=== PATIENT | female | born 1950 | race Caucasian/White ===

== ENCOUNTER 2019-08-19 09:17 | Emergency (ER) | payer MEDICARE ==
[~2019-08-19] VITALS: Ht 157.5 cm; Wt 63.5 kg
[2019-08-19 09:47] LABS: BILIRUBIN,URINE SMALL (NEG); CLARITY,URINE CLOUDY; COLOR,URINE AMBER; NITRITE,URINE NEGATIVE (NEG); PROTEIN,URINE 100 mg/dL (NEG-TRACE)
[2019-08-19 09:55] LABS: BACTERIA,URINE MANY /HPF (0-FEW); RBC,URINE >40 /HPF (0-2); WBC,URINE TNTC /HPF (0-4)
--- NOTE | 2019-08-19 10:09 | PHYS DOC ---
Past Medical History Past Medical History: Diabetes-Type II, Hypertension Past Surgical History: Appendectomy, Cholecystectomy, Other Additional Past Surgical Histo: HEAD, EYE, R. ARM AND WRIST Alcohol Use: None Drug Use: None Adult General Chief Complaint Chief Complaint: ABDOMINAL PAIN HPI HPI 69-year-old female presents to the emergency Department complaints of abdominal pain left flank pain. She states is been ongoing approximate one month. Worsening pain today. Describes the pain as sharp she denies any nausea, vomiting, fever, diarrhea. She states worsening pain with eating. Review of Systems Review of Systems Constitutional: Denies fever or chills [] Eyes: Denies change in visual acuity, redness, or eye pain [] HENT: Denies nasal congestion or sore throat [] Respiratory: Denies cough or shortness of breath [] Cardiovascular: No additional information not addressed in HPI [] GI: + abdominal pain, left flank, no nausea, vomiting, bloody stools or diarrhea [] : Denies dysuria or hematuria [] Musculoskeletal: Denies back pain or joint pain [] Integument: Denies rash or skin lesions [] Neurologic: Denies headache, focal weakness or sensory changes [] All other systems were reviewed and found to be within normal limits, except as documented in this note. Allergies Allergies Allergies Coded Allergies Type Severity Reaction Last Updated Verified No Known Drug Allergies 02/20/15 No Physical Exam Physical Exam Constitutional: Well developed, well nourished, no acute distress, non-toxic appearance. [] HENT: Normocephalic, atraumatic, bilateral external ears normal, oropharynx moist, no oral exudates, nose normal. [] Eyes: PERRLA, EOMI, conjunctiva normal, no discharge. [] Cardiovascular:Heart rate regular rhythm, no murmur [] Lungs & Thorax: Bilateral breath sounds clear to auscultation [] Abdomen: Bowel sounds normal, soft, no tenderness, no masses, no pulsatile masses. [] Skin: Warm, dry, no erythema, no rash. [] Back: No tenderness, no CVA tenderness. [] Extremities: No tenderness, no edema. [] Neurologic: Alert and oriented X 3, no focal deficits noted. [] Psychologic: Affect normal, judgement normal, mood normal. [] Current Patient Data Vital Signs Vital Signs Date Time Temp Pulse Resp B/P (MAP) Pulse Ox O2 Delivery O2 Flow Rate FiO2 08/19/19 09:44 110 16 154/72 (99) 98 Room Air Lab Values Laboratory Tests Test 08/19/19 09:23 08/19/19 09:55 Urine Color [place] Urine Clarity Cloudy Urine pH 7.0 Urine Specific Lyons 1.015 Urine Protein 100 mg/dL (NEG-TRACE) Urine Glucose (UA) 100 mg/dL (NEG) Urine Ketones (Stick) 15 mg/dL (NEG) Urine Blood Large (NEG) Urine Nitrite Negative (NEG) Urine Bilirubin Small (NEG) Urine Urobilinogen Dipstick 4.0 mg/dL (0.2 mg/dL) Urine Leukocyte Esterase Large (NEG) Urine RBC >40 /HPF (0-2) Urine WBC Tntc /HPF (0-4) Urine Bacteria Many /HPF (0-FEW) White Blood Count 12.1 x10^3/uL (4.0-11.0) H Red Blood Count 4.46 x10^6/uL (3.50-5.40) Hemoglobin 13.1 g/dL (12.0-15.5) Hematocrit 37.4 % (36.0-47.0) Mean Corpuscular Volume 84 fL (79-100) Mean Corpuscular Hemoglobin 29 pg (25-35) Mean Corpuscular Hemoglobin Concent 35 g/dL (31-37) Red Cell Distribution Width 12.5 % (11.5-14.5) Platelet Count 265 x10^3/uL (140-400) Neutrophils (%) (Auto) 77 % (31-73) H Lymphocytes (%) (Auto) 13 % (24-48) L Monocytes (%) (Auto) 9 % (0-9) Eosinophils (%) (Auto) 0 % (0-3) Basophils (%) (Auto) 0 % (0-3) Neutrophils # (Auto) 9.3 x10^3/uL (1.8-7.7) H Lymphocytes # (Auto) 1.6 x10^3/uL (1.0-4.8) Monocytes # (Auto) 1.1 x10^3/uL (0.0-1.1) Eosinophils # (Auto) 0.0 x10^3/uL (0.0-0.7) Basophils # (Auto) 0.0 x10^3/uL (0.0-0.2) Sodium Level 133 mmol/L (136-145) L Potassium Level 3.7 mmol/L (3.5-5.1) Chloride Level 94 mmol/L (98-107) L Carbon Dioxide Level 28 mmol/L (21-32) Anion Gap 11 (6-14) Blood Urea Nitrogen 13 mg/dL (7-20) Creatinine 0.9 mg/dL (0.6-1.0) Estimated GFR (Cockcroft-Gault) 62.1 BUN/Creatinine Ratio 14 (6-20) Glucose Level 265 mg/dL (70-99) H Calcium Level 8.8 mg/dL (8.5-10.1) Total Bilirubin 0.8 mg/dL (0.2-1.0) Aspartate Amino Transferase (AST) 26 U/L (15-37) Alanine Aminotransferase (ALT) 23 U/L (14-59) Alkaline Phosphatase 173 U/L (46-116) H Total Protein 8.9 g/dL (6.4-8.2) H Albumin 2.5 g/dL (3.4-5.0) L Albumin/Globulin Ratio 0.4 (1.0-1.7) L Lipase 88 U/L (73-393) Laboratory Tests 08/19/19 09:55 Laboratory Tests 08/19/19 09:55 EKG EKG [] Radiology/Procedures Radiology/Procedures [] Course & Med Decision Making Course & Med Decision Making Pertinent Labs and Imaging studies reviewed. (See chart for details) []69-year-old female presents to the emergency Department complaints of abdominal pain left flank pain. She states is been ongoing approximate one month. Worsening pain today. Describes the pain as sharp she denies any nausea, vomiting, fever, diarrhea. She states worsening pain with eating. Labs reviewed WBC 12K, UA with evidence of UTI Metabolic profile unremarkable No acute findings on physical exam Recommend dc home with abx and pain medications Dragon Disclaimer Dragon Disclaimer This electronic medical record was generated, in whole or in part, using a voice recognition dictation system. Departure Departure Impression: Primary Impression: Urinary tract infection Disposition: HOME, SELF-CARE Condition: IMPROVED Referrals: NO PCP (PCP) Patient Instructions: Urinary Tract Infection, Bums-[id number] Additional Instructions: Recommend follow up with PCP 3 - 5 days Return to the ER with worsening symptoms, intractable pain, fever, altered mental status Tylenol/Motrin as needed for pain Take antibiotics as directed Scripts Diclofenac Potassium (DICLOFENAC POTASSIUM) 50 Mg Tablet 1 TAB PO BID for 3 Days, #6 TAB 1 Refill Prov: STEPHANI ANDERS MD 08/19/19 Cephalexin (KEFLEX) 500 Mg Capsule 2 CAP PO Q12HR for 5 Days, #20 CAP Prov: STEPHANI ANDERS MD 08/19/19 Problem Qualifiers Primary Impression: Urinary tract infection Urinary tract infection type: site unspecified Hematuria presence: without hematuria Qualified Codes: N39.0 - Urinary tract infection, site not specified STEPHANI ANDERS MD Aug 19, 2019 10:09
[2019-08-19 10:30] LABS: BASO % 0 % (0-3); EOS % 0 % (0-3); HEMATOCRIT 37.4 % (36.0-47.0); HEMOGLOBIN 13.1 g/dL (12.0-15.5); LYMPH # 1.6 x10^3/uL (1.0-4.8); LYMPH % 13 % (24-48); MEAN CORPUSCULAR HEMOGLOBIN 29 pg (25-35); MEAN CORPUSCULAR HGB CONC 35 g/dL (31-37); MEAN CORPUSCULAR VOLUME 84 fL (79-100); MONO # 1.1 x10^3/uL (0.0-1.1); MONO % 9 % (0-9); NEUT # 9.3 x10^3/uL (1.8-7.7); NEUT % 77 % (31-73); PLATELET COUNT 265 x10^3/uL (140-400); RED BLOOD COUNT 4.46 x10^6/uL (3.50-5.40); RED CELL DISTRIBUTION WIDTH 12.5 % (11.5-14.5); WHITE BLOOD COUNT 12.1 x10^3/uL (4.0-11.0)
[2019-08-19 10:41] LABS: CALCIUM 8.8 mg/dL (8.5-10.1); CREATININE 0.9 mg/dL (0.6-1.0); GFR 62.1; POTASSIUM 3.7 mmol/L (3.5-5.1)
[2019-08-19 10:48] LABS: ALBUMIN 2.5 g/dL (3.4-5.0); ALBUMIN/GLOBULIN RATIO 0.4 (1.0-1.7); TOTAL BILIRUBIN 0.8 mg/dL (0.2-1.0); TOTAL PROTEIN 8.9 g/dL (6.4-8.2)
[2019-08-19] MEDS ORDERED: CEPH-264 PO (10:55)
[2019-08-19] MEDS ORDERED: DICL50TA2 PO (10:55)
[2019-08-19 11:00] VITALS: BP 138/71
[2019-08-24] MEDS ORDERED: AMOX1TAB58 PO (12:54)
[2019-08-24] MEDS ORDERED: ACET325T9 PO (12:54)
[2019-08-24] MEDS ORDERED: LACT1CAP19 PO (12:54)
[2019-08-24] MEDS ORDERED: POTA20TA4 PO (12:54)
[2019-08-24] MEDS ORDERED: PANT40TA77 PO (12:54)
[2019-08-24] MEDS ORDERED: AMLO5TAB10 PO (12:54)
[2019-08-24] MEDS ORDERED: INSU100V8 SQ (12:54)
== END 2019-08-19 11:23 | disposition home or self-care (01) ==
LOC: ER 09:17
DX: N39.0 Urinary tract infection, site not specified (principal); I10 Essential (primary) hypertension; E11.9 Type 2 diabetes mellitus without complications; Z90.89 Acquired absence of other organs; Z90.49 Acquired absence of other specified parts of digestive tract
CPT/HCPCS: 36415; 80053; 81001; 83690; 85025; 87086; 87186; 99284

== ENCOUNTER 2019-08-21 10:59 | Inpatient (IN) | payer MEDICARE ==
[~2019-08-21] VITALS: Ht 157.5 cm; Wt 65.1 kg
[~2019-08-21 10:59] MED LIST: CEPH-264 PO; DICL50TA2 PO
[2019-08-21] MEDS ORDERED: IV NORMAL SALINE 1000ML BAG 1,000 ML IV SCH (11:38)
[2019-08-21] MEDS ORDERED: ONDANSETRON PF 4 MG/2 ML VIAL. IV ONE (11:45)
[2019-08-21] MEDS ORDERED: FAMOTIDINE 20 MG/2 ML VIAL IVP ONE (11:45)
[2019-08-21 11:58] LABS: BASO % 0 % (0-3); EOS # 0.1 x10^3/uL (0.0-0.7); EOS % 0 % (0-3); HEMATOCRIT 37.9 % (36.0-47.0); HEMOGLOBIN 13.2 g/dL (12.0-15.5); LYMPH # 0.4 x10^3/uL (1.0-4.8); LYMPH % 3 % (24-48); MEAN CORPUSCULAR HEMOGLOBIN 29 pg (25-35); MEAN CORPUSCULAR HGB CONC 35 g/dL (31-37); MEAN CORPUSCULAR VOLUME 84 fL (79-100); MONO # 0.3 x10^3/uL (0.0-1.1); MONO % 2 % (0-9); NEUT # 14.5 x10^3/uL (1.8-7.7); NEUT % 95 % (31-73); PLATELET COUNT 220 x10^3/uL (140-400); RED BLOOD COUNT 4.53 x10^6/uL (3.50-5.40); RED CELL DISTRIBUTION WIDTH 12.7 % (11.5-14.5); WHITE BLOOD COUNT 15.3 x10^3/uL (4.0-11.0)
[2019-08-21 12:07] LABS: CALCIUM 8.3 mg/dL (8.5-10.1); CREATININE 2.5 mg/dL (0.6-1.0); GFR 19.1; POTASSIUM 3.4 mmol/L (3.5-5.1)
[2019-08-21 12:13] LABS: ALBUMIN 2.1 g/dL (3.4-5.0); ALBUMIN/GLOBULIN RATIO 0.4 (1.0-1.7); TOTAL BILIRUBIN 4.8 mg/dL (0.2-1.0); TOTAL PROTEIN 7.2 g/dL (6.4-8.2)
--- NOTE | 2019-08-21 12:20 | PHYS DOC ---
Past Medical History Past Medical History: Diabetes-Type II, Hypertension Past Surgical History: Appendectomy, Cholecystectomy, Other Additional Past Surgical Histo: HEAD, EYE, R. ARM AND WRIST, rt ear surgery Alcohol Use: None Drug Use: None Adult General Chief Complaint Chief Complaint: NAUSEA/VOMITING/DIARRHA HPI HPI Patient is a 69 year old female who presents with nausea, vomiting, one bout of diarrhea that all started yesterday. Patient states started after she took her potassium pills. Patient states she's vomited 3 times today. Patient has a history of hypertension diabetes and states that she does not take any medications to stop them on her own because she stated that they didn't make her feel well. Patient states otherwise she states vitamins. August 19 she was here at [facility] was diagnosed with a urinary tract infection and given Keflex. She denies any abdominal pain or dysuria symptoms. Review of Systems Review of Systems GI: Denies abdominal pain. + nausea, +vomiting, Denies bloody stools. + diarrhea [] All other systems were reviewed and found to be within normal limits, except as documented in this note. Current Medications Current Medications Current Medications Medications (Trade) Dose Ordered Sig/Bere Start Time Stop Time Status Last Admin Dose Admin Famotidine (Pepcid Vial) 20 mg 1X ONCE 08/21/19 11:45 08/21/19 11:46 DC 08/21/19 11:51 20 MG Ondansetron HCl (Zofran) 4 mg 1X ONCE 08/21/19 11:45 08/21/19 11:46 DC 08/21/19 11:51 4 MG Sodium Chloride 1,000 ml @ 1,000 mls/hr Q1H 08/21/19 11:38 08/21/19 12:37 DC 08/21/19 11:52 1,000 MLS/HR Allergies Allergies Allergies Coded Allergies Type Severity Reaction Last Updated Verified No Known Drug Allergies 02/20/15 No Physical Exam Physical Exam Constitutional: Well developed, well nourished, no acute distress, non-toxic appearance. [] HENT: Normocephalic, atraumatic, bilateral external ears normal, oropharynx moist, no oral exudates, nose normal. [] Eyes: PERRLA, EOMI, conjunctiva normal, no discharge. [] Neck: Normal range of motion, no tenderness, supple, no stridor. [] Cardiovascular:Heart rate regular rhythm, no murmur [] Lungs & Thorax: Bilateral breath sounds clear in upper and diminished in lower lobes to auscultation [] Abdomen: Bowel sounds normal, soft, no tenderness, no masses, no pulsatile masses. [] Skin: Warm, dry, no erythema, no rash. [] Back: No tenderness, no CVA tenderness. [] Extremities: No tenderness, no cyanosis, no clubbing, ROM intact, no edema. [] Neurologic: Alert and oriented X 3, normal motor function, normal sensory function, no focal deficits noted. [] Psychologic: Affect normal, judgement normal, mood normal. [] Current Patient Data Vital Signs Vital Signs Date Time Temp Pulse Resp B/P (MAP) Pulse Ox O2 Delivery O2 Flow Rate FiO2 08/21/19 11:15 97.2 110 16 141/70 (93) 95 Room Air 97.2 Lab Values Laboratory Tests Test 08/21/19 11:30 White Blood Count 15.3 x10^3/uL (4.0-11.0) H Red Blood Count 4.53 x10^6/uL (3.50-5.40) Hemoglobin 13.2 g/dL (12.0-15.5) Hematocrit 37.9 % (36.0-47.0) Mean Corpuscular Volume 84 fL (79-100) Mean Corpuscular Hemoglobin 29 pg (25-35) Mean Corpuscular Hemoglobin Concent 35 g/dL (31-37) Red Cell Distribution Width 12.7 % (11.5-14.5) Platelet Count 220 x10^3/uL (140-400) Neutrophils (%) (Auto) 95 % (31-73) H Lymphocytes (%) (Auto) 3 % (24-48) L Monocytes (%) (Auto) 2 % (0-9) Eosinophils (%) (Auto) 0 % (0-3) Basophils (%) (Auto) 0 % (0-3) Neutrophils # (Auto) 14.5 x10^3/uL (1.8-7.7) H Lymphocytes # (Auto) 0.4 x10^3/uL (1.0-4.8) L Monocytes # (Auto) 0.3 x10^3/uL (0.0-1.1) Eosinophils # (Auto) 0.1 x10^3/uL (0.0-0.7) Basophils # (Auto) 0.0 x10^3/uL (0.0-0.2) Segmented Neutrophils % 79 % (35-66) H Band Neutrophils % 14 % (0-9) H Lymphocytes % 6 % (24-48) L Monocytes % 1 % (0-10) Platelet Estimate Adequate (ADEQUATE) Sodium Level 129 mmol/L (136-145) L Potassium Level 3.4 mmol/L (3.5-5.1) L Chloride Level 90 mmol/L (98-107) L Carbon Dioxide Level 26 mmol/L (21-32) Anion Gap 13 (6-14) Blood Urea Nitrogen 40 mg/dL (7-20) H Creatinine 2.5 mg/dL (0.6-1.0) H Estimated GFR (Cockcroft-Gault) 19.1 BUN/Creatinine Ratio 16 (6-20) Glucose Level 201 mg/dL (70-99) H Calcium Level 8.3 mg/dL (8.5-10.1) L Total Bilirubin 4.8 mg/dL (0.2-1.0) H Aspartate Amino Transferase (AST) 71 U/L (15-37) H Alanine Aminotransferase (ALT) 52 U/L (14-59) Alkaline Phosphatase 269 U/L (46-116) H Troponin I Quantitative < 0.017 ng/mL (0.000-0.055) Total Protein 7.2 g/dL (6.4-8.2) Albumin 2.1 g/dL (3.4-5.0) L Albumin/Globulin Ratio 0.4 (1.0-1.7) L Lipase 98 U/L (73-393) Laboratory Tests 08/21/19 11:30 Laboratory Tests 08/21/19 11:30 EKG EKG Sinus tachycardia no STEMI.[] Interpretation Time: [address] Woods Radiology/Procedures Radiology/Procedures [] Impressions: [facility] [address] [place] [address] IMAGING REPORT Signed PATIENT: AMEE VERDIN ACCOUNT: [id number] : 1950 LOCATION: ER AGE: 69 SEX: F EXAM STATUS: REG ER ORD. PHYSICIAN: MERLE HINOJOSA APRN REASON: decreased O2, n,v x2 days PROCEDURE: CHEST PA & LATERAL CHEST PA LATERAL History: Decreased oxygenation, nausea and vomiting for 2 days Comparison: None. Findings: 2 views of the chest are submitted. There is mild apparent elevation of the hemidiaphragm. No convincing infiltrate is identified. There is no dependent pleural fluid or pneumothorax. Cardiac silhouette is within normal limits. There is atherosclerotic calcification near the aortic arch. There is mild prominence of the central pulmonary vasculature. Impression: 1. No convincing infiltrate is identified by radiograph. Electronically signed by: Sayra Pelaez MD (08/21/2019 1:00 PM) [facility] DICTATED and SIGNED BY: SAYRA PELAEZ MD DATE: 08/21/19 1300 [facility] [address] [place] [address] IMAGING REPORT Signed PATIENT: AMEE VERDIN ACCOUNT: [id number] : 1950 LOCATION: ER AGE: 69 SEX: F EXAM STATUS: REG ER ORD. PHYSICIAN: MERLE HINOJOSA APRN REASON: nausea, vomiting PROCEDURE: CT ABDOMEN PELVIS WO CONTRAST PQRS Compliance Statement: One or more of the following individualized dose reduction techniques were utilized for this examination: 1. Automated exposure control 2. Adjustment of the mA and/or kV according to patient size 3. Use of iterative reconstruction technique CT ABDOMEN PELVIS WO CONTRAST Clinical Indication: Nausea and vomiting. Comparison: None. Technique: Helical CT imaging of the abdomen and pelvis is performed without IV or oral contrast. Findings: Evaluation of solid organs and bowel is limited without oral and IV contrast, decreasing sensitivity for detection of pathology. Groundglass opacities in the lung bases may be atelectasis or alveolar edema or due to small airways disease. Cardiac size normal. Calcified granulomas in the spleen. Gallbladder not seen, presumably surgically absent. Normal variant Roseanna lobe. The liver is homogeneous. Pancreas, adrenal glands, and abdominal aorta caliber are normal. There are a few upper limits of normal in size retroperitoneal lymph nodes. No renal calculus. No hydronephrosis. Stomach unremarkable. No dilated small bowel. There are a few diverticula of the distal colon without inflammation. No colon wall thickening is seen. Appendix not identified. No secondary signs of appendicitis. No abdominal free fluid. The urinary bladder is normal. Anteverted uterus. No pelvic free fluid. Ovaries relatively symmetric. No acute bone abnormality. IMPRESSION: 1. No acute abdominal or pelvic abnormality. 2. Minimal distal colon diverticulosis. Electronically signed by: Johnathon Salas MD (08/21/2019 1:38 PM) [facility] DICTATED and SIGNED BY: JOHNATHON SALAS MD DATE: 08/21/19 1338 Course & Med Decision Making Course & Med Decision Making Alert and oriented. Ambulatory with a steady gait. Abdomen is soft and nontender. Lungs are clear but slightly diminished in lower lobes. Patient is tachycardia at 102. She is afebrile. Speaks in full clear sentences. Skin is pink warm and dry. Mucous Membranes are moist. Patient denies chest pain, shortness of breath, dizziness, headache, fevers, chills, weakness or visual changes, numbness or tingling. PERRLA. EKG shows sinus tachycardia but no STEMI. She does have a white blood cell count of 15.3. BUN and creatinine are elevated greatly compared to August 19, 2019. She has no history of kidney problems she has a acute kidney injury. Upon standing up patient stated that she gets dizzy when standing. Orthostatics are as follows: Laying 108/55, sitting 105/59, standing 79/47. I have spoken to Dr. Kingsley. I told him I'm still waiting on a lactic acid and a urinalysis to come back. Patient is admitted. Lactic acid is normal. Dr. Kingsley stated to start her on Cipro 400 mg IV twice a day. Dragon Disclaimer Dragon Disclaimer This electronic medical record was generated, in whole or in part, using a voice recognition dictation system. Departure Departure Impression: Primary Impression: Acute kidney injury Additional Impression: Orthostatic hypotension Disposition: ADMITTED INPATIENT Admitting Physician: MAXIMO Condition: STABLE Referrals: NO PCP (PCP) Problem Qualifiers MERLE HINOJOSA APRN Aug 21, 2019 12:20
[2019-08-21 12:24] LABS: % BANDS 14 % (0-9); % LYMPHS 6 % (24-48); % MONOS 1 % (0-10); % SEGS 79 % (35-66); PLT ESTIMATE ADEQUATE (ADEQUATE)
--- NOTE | 2019-08-21 13:04 | RAD ---
CHEST PA LATERAL History: Decreased oxygenation, nausea and vomiting for 2 days Comparison: None. Findings: 2 views of the chest are submitted. There is mild apparent elevation of the hemidiaphragm. No convincing infiltrate is identified. There is no dependent pleural fluid or pneumothorax. Cardiac silhouette is within normal limits. There is atherosclerotic calcification near the aortic arch. There is mild prominence of the central pulmonary vasculature. Impression: 1. No convincing infiltrate is identified by radiograph. Electronically signed by: Manfred Sanon MD (08/21/2019 1:00 PM) [facility]
--- NOTE | 2019-08-21 13:41 | RAD ---
PQRS Compliance Statement: One or more of the following individualized dose reduction techniques were utilized for this examination: 1. Automated exposure control 2. Adjustment of the mA and/or kV according to patient size 3. Use of iterative reconstruction technique CT ABDOMEN PELVIS WO CONTRAST Clinical Indication: Nausea and vomiting. Comparison: None. Technique: Helical CT imaging of the abdomen and pelvis is performed without IV or oral contrast. Findings: Evaluation of solid organs and bowel is limited without oral and IV contrast, decreasing sensitivity for detection of pathology. Groundglass opacities in the lung bases may be atelectasis or alveolar edema or due to small airways disease. Cardiac size normal. Calcified granulomas in the spleen. Gallbladder not seen, presumably surgically absent. Normal variant Roseanna lobe. The liver is homogeneous. Pancreas, adrenal glands, and abdominal aorta caliber are normal. There are a few upper limits of normal in size retroperitoneal lymph nodes. No renal calculus. No hydronephrosis. Stomach unremarkable. No dilated small bowel. There are a few diverticula of the distal colon without inflammation. No colon wall thickening is seen. Appendix not identified. No secondary signs of appendicitis. No abdominal free fluid. The urinary bladder is normal. Anteverted uterus. No pelvic free fluid. Ovaries relatively symmetric. No acute bone abnormality. IMPRESSION: 1. No acute abdominal or pelvic abnormality. 2. Minimal distal colon diverticulosis. Electronically signed by: Johnathon Salas MD (08/21/2019 1:38 PM) [facility]
--- NOTE | 2019-08-21 13:54 | PDOC1 ---
History and Physical Date of Admission Date of Admission DATE: 08/21/19 TIME: 13:53 Identification/Chief Complaint Chief Complaint seen in er , failed out pt rx for UTI 69 year old female who presents with nausea, vomiting, one bout of diarrhea that all started yesterday. Patient states started after she took her potassium pills. Patient states she's vomited 3 times today. Patient has a history of hypertension diabetes and states that she does not take any medications to stop them on her own because she stated that they didn't make her feel well. Patient states otherwise she states vitamins. August 19 she was here at [facility] was diagnosed with a urinary tract infection and given Keflex. LABS C/W ARF, DEHYDRATION, SEPSIS Past Medical History Past Medical History Past Medical History Past Medical History Past Medical History: Diabetes-Type II, Hypertension Past Surgical History: Appendectomy, Cholecystectomy, Other Additional Past Surgical Histo: HEAD, EYE, R. ARM AND WRIST, rt ear surgery Alcohol Use: None Drug Use: None FHX HTN Cardiovascular: HTN Family History Family History: High Cholestrol, Hypertension Social History Smoke: No ALCOHOL: none Drugs: None Current Problem List Problem List Problems Medical Problems: (1) Acute kidney injury Status: Acute (2) Orthostatic hypotension Status: Acute Current Medications Current Medications Current Medications Sodium Chloride 1,000 ml @ 1,000 mls/hr Q1H IV Last administered on 08/21/19at 11:52; Start 08/21/19 at 11:38; Stop 08/21/19 at 12:37; Status DC Ondansetron HCl (Zofran) 4 mg 1X ONCE IV Last administered on 08/21/19at 11:51; Start 08/21/19 at 11:45; Stop 08/21/19 at 11:46; Status DC Famotidine (Pepcid Vial) 20 mg 1X ONCE IVP Last administered on 08/21/19at 11:51; Start 08/21/19 at 11:45; Stop 08/21/19 at 11:46; Status DC Active Scripts Active Diclofenac Potassium 50 Mg Tablet 1 Tab PO BID 3 Days Keflex (Cephalexin) 500 Mg Capsule 2 Cap PO Q12HR 5 Days Allergies Allergies: Coded Allergies: No Known Drug Allergies (Unverified , 02/20/15) ROS Review of System GI: Denies abdominal pain. + nausea, +vomiting, Denies bloody stools. + diarrhea [] 14 PT systems were reviewed and found to be within normal limits, except as documented General: YES: Chills, Fatigue PSYCHOLOGICAL ROS: No: Anxiety, Behavioral Disorder, Concentration difficultie, Decreased libido, Depression, Disorientation, Hallucinations, Hostility, Irritablity, Memory difficulties, Mood Swings, Obsessive thoughts, Physical abuse, Sexual abuse, Sleep disturbances, Suicidal ideation, Other ALLERGY AND IMMUNOLOGY: No: Hives, Insect Bite Sensitivity, Itchy/Watery Eyes, Nasal Congestion, Post Nasal Drip, Seasonal Allergies, Other Hematological and Lymphatic: No: Bleeding Problems, Blood Clots, Blood Trans fusions, Brusing, Night Sweats, Pallor, Swollen Lymph Nodes, Other Gastrointestinal: Yes Nausea, Yes Vomiting Musculoskeletal: Yes Joint Stiffness; No Gait Disturbance, No Joint Pain, No Joint Swelling, No Muscle Pain, No Muscular Weakness, No Pain In:, No Swelling In:, No Other Skin: Yes Dry Skin; No Eczema, No Hair Changes, No Lumps, No Mole Changes, No Mottling, No Nail Changes, No Pruritus, No Rash, No Skin Lesion Changes, No Other, No Acne Physical Exam Physical Exam Physical Exam Physical Exam Constitutional: Well developed, well nourished, no acute distress, non-toxic appearance. [] HENT: Normocephalic, atraumatic, bilateral external ears normal, oropharynx moist, no oral exudates, nose normal. [] Eyes: PERRLA, EOMI, conjunctiva normal, no discharge. [] Neck: Normal range of motion, no tenderness, supple, no stridor. [] Cardiovascular:Heart rate regular rhythm, no murmur [] Lungs & Thorax: Bilateral breath sounds clear in upper and diminished in lower lobes to auscultation [] Abdomen: Bowel sounds normal, soft, no tenderness, no masses, no pulsatile masses. [] Skin: Warm, dry, no erythema, no rash. [] Back: No tenderness, no CVA tenderness. [] Extremities: No tenderness, no cyanosis, no clubbing, ROM intact, no edema. [] Neurologic: Alert and oriented X 3, normal motor function, normal sensory function, no focal deficits noted. [] Psychologic: Affect normal, judgment normal, mood normal. [] General: Alert, Oriented X3, Cooperative Heart: RRR Breasts: Not examined Abdomen: Soft PELVIC: Examination not indicated Neuro: Normal speech, Cranial nerves 3-12 NL Psych/Mental Status: Mental status NL Vitals Vitals Vital Signs Date Time Temp Pulse Resp B/P (MAP) Pulse Ox O2 Delivery O2 Flow Rate FiO2 08/21/19 11:15 97.2 110 16 141/70 (93) 95 Room Air 97.2 Labs Labs Laboratory Tests Test 08/21/19 11:30 White Blood Count 15.3 x10^3/uL (4.0-11.0) Red Blood Count 4.53 x10^6/uL (3.50-5.40) Hemoglobin 13.2 g/dL (12.0-15.5) Hematocrit 37.9 % (36.0-47.0) Mean Corpuscular Volume 84 fL (79-100) Mean Corpuscular Hemoglobin 29 pg (25-35) Mean Corpuscular Hemoglobin Concent 35 g/dL (31-37) Red Cell Distribution Width 12.7 % (11.5-14.5) Platelet Count 220 x10^3/uL (140-400) Neutrophils (%) (Auto) 95 % (31-73) Lymphocytes (%) (Auto) 3 % (24-48) Monocytes (%) (Auto) 2 % (0-9) Eosinophils (%) (Auto) 0 % (0-3) Basophils (%) (Auto) 0 % (0-3) Neutrophils # (Auto) 14.5 x10^3/uL (1.8-7.7) Lymphocytes # (Auto) 0.4 x10^3/uL (1.0-4.8) Monocytes # (Auto) 0.3 x10^3/uL (0.0-1.1) Eosinophils # (Auto) 0.1 x10^3/uL (0.0-0.7) Basophils # (Auto) 0.0 x10^3/uL (0.0-0.2) Segmented Neutrophils % 79 % (35-66) Band Neutrophils % 14 % (0-9) Lymphocytes % 6 % (24-48) Monocytes % 1 % (0-10) Platelet Estimate Adequate (ADEQUATE) Sodium Level 129 mmol/L (136-145) Potassium Level 3.4 mmol/L (3.5-5.1) Chloride Level 90 mmol/L (98-107) Carbon Dioxide Level 26 mmol/L (21-32) Anion Gap 13 (6-14) Blood Urea Nitrogen 40 mg/dL (7-20) Creatinine 2.5 mg/dL (0.6-1.0) Estimated GFR (Cockcroft-Gault) 19.1 BUN/Creatinine Ratio 16 (6-20) Glucose Level 201 mg/dL (70-99) Calcium Level 8.3 mg/dL (8.5-10.1) Total Bilirubin 4.8 mg/dL (0.2-1.0) Aspartate Amino Transf (AST/SGOT) 71 U/L (15-37) Alanine Aminotransferase (ALT/SGPT) 52 U/L (14-59) Alkaline Phosphatase 269 U/L (46-116) Troponin I Quantitative < 0.017 ng/mL (0.000-0.055) Total Protein 7.2 g/dL (6.4-8.2) Albumin 2.1 g/dL (3.4-5.0) Albumin/Globulin Ratio 0.4 (1.0-1.7) Lipase 98 U/L (73-393) Laboratory Tests Test 08/21/19 11:30 White Blood Count 15.3 x10^3/uL (4.0-11.0) Red Blood Count 4.53 x10^6/uL (3.50-5.40) Hemoglobin 13.2 g/dL (12.0-15.5) Hematocrit 37.9 % (36.0-47.0) Mean Corpuscular Volume 84 fL (79-100) Mean Corpuscular Hemoglobin 29 pg (25-35) Mean Corpuscular Hemoglobin Concent 35 g/dL (31-37) Red Cell Distribution Width 12.7 % (11.5-14.5) Platelet Count 220 x10^3/uL (140-400) Neutrophils (%) (Auto) 95 % (31-73) Lymphocytes (%) (Auto) 3 % (24-48) Monocytes (%) (Auto) 2 % (0-9) Eosinophils (%) (Auto) 0 % (0-3) Basophils (%) (Auto) 0 % (0-3) Neutrophils # (Auto) 14.5 x10^3/uL (1.8-7.7) Lymphocytes # (Auto) 0.4 x10^3/uL (1.0-4.8) Monocytes # (Auto) 0.3 x10^3/uL (0.0-1.1) Eosinophils # (Auto) 0.1 x10^3/uL (0.0-0.7) Basophils # (Auto) 0.0 x10^3/uL (0.0-0.2) Segmented Neutrophils % 79 % (35-66) Band Neutrophils % 14 % (0-9) Lymphocytes % 6 % (24-48) Monocytes % 1 % (0-10) Platelet Estimate Adequate (ADEQUATE) Sodium Level 129 mmol/L (136-145) Potassium Level 3.4 mmol/L (3.5-5.1) Chloride Level 90 mmol/L (98-107) Carbon Dioxide Level 26 mmol/L (21-32) Anion Gap 13 (6-14) Blood Urea Nitrogen 40 mg/dL (7-20) Creatinine 2.5 mg/dL (0.6-1.0) Estimated GFR (Cockcroft-Gault) 19.1 BUN/Creatinine Ratio 16 (6-20) Glucose Level 201 mg/dL (70-99) Calcium Level 8.3 mg/dL (8.5-10.1) Total Bilirubin 4.8 mg/dL (0.2-1.0) Aspartate Amino Transf (AST/SGOT) 71 U/L (15-37) Alanine Aminotransferase (ALT/SGPT) 52 U/L (14-59) Alkaline Phosphatase 269 U/L (46-116) Troponin I Quantitative < 0.017 ng/mL (0.000-0.055) Total Protein 7.2 g/dL (6.4-8.2) Albumin 2.1 g/dL (3.4-5.0) Albumin/Globulin Ratio 0.4 (1.0-1.7) Lipase 98 U/L (73-393) VTE Prophylaxis Ordered VTE Prophylaxis Devices: Yes VTE Pharmacological Prophylaxi: Yes Assessment/Plan Assessment/Plan IMPRESSION 1. Acute pyelonephritis 2. LUCIANA 3. INTRACTABLE NAUSEA AND VOMITING 4. ACUTE INTAVASCULAR VOLUME DEPLETION, DEHYDRATION 5. SEPSIS 6. DIABETES 7. HTN PLAN ADMIT IV CIPRO 200MG BID IV ZOSYN QID DVT PROPHYLAXIS NEPHROLOGY CONSULT BLOOD AND URINE CULTURES IV FLUID SUPPORT ACCUCHECKS NPO ID CONSULT NINI CASANOVA MD Aug 21, 2019 13:53
[2019-08-21] MEDS ORDERED: ACETAMINOPHEN 325 MG TABLET. PO PRN ×2 (14:00→19:45)
[2019-08-21] MEDS ORDERED: fentaNYL PF VIAL 100 MCG/2 ML VIAL IV PRN (14:00)
[2019-08-21] MEDS ORDERED: ONDANSETRON PF 4 MG/2 ML VIAL. IV PRN ×2 (14:00→19:45)
[2019-08-21] MEDS: IV NORMAL SALINE 1000ML BAG 1,000 ML IV SCH ×2 (14:05→20:58)
[2019-08-21 14:14] LABS: BILIRUBIN,URINE SMALL (NEG); CLARITY,URINE CLEAR; COLOR,URINE AMBER; NITRITE,URINE NEGATIVE (NEG); PROTEIN,URINE 30 mg/dL (NEG-TRACE)
[2019-08-21 14:17] LABS: BARBITURATES NEG (NEG); BENZODIAZEPINES NEG (NEG); CANNABINOIDS NEG (NEG); COCAINE NEG (NEG); METHADONE NEG (NEG); OPIATES NEG (NEG); PHENCYCLIDINE NEG (NEG)
[2019-08-21 14:21] LABS: AMPHETAMINE/METHAMPHETAMINE NEG (NEG)
[2019-08-21 14:25] LABS: BACTERIA,URINE FEW /HPF (0-FEW); RBC,URINE 20-40 /HPF (0-2); SQUAMOUS EPITHELIAL CELL,UR MOD /LPF; WBC,URINE TNTC /HPF (0-4)
[2019-08-21] MEDS ORDERED: CIPROFLOXACIN 400MG PREMIX 200 ML IV SCH (15:00)
[2019-08-21 15:05] VITALS: BP 108/62
[2019-08-21 18:30] VITALS: BP 103/59
[2019-08-21 19:00] VITALS: BP 104/60
[2019-08-21] MEDS ORDERED: guaiFENesin ORAL 200 MG/10 ML LIQUID. PO PRN (19:45)
[2019-08-21] MEDS ORDERED: DOCUSATE SODIUM 100 MG CAPSULE. PO PRN (19:45)
[2019-08-21] MEDS ORDERED: LORazepam 0.5 MG TABLET PO PRN (19:45)
[2019-08-21] MEDS ORDERED: cloNIDine HCL 0.1 MG TABLET PO PRN (19:45)
[2019-08-21] MEDS ORDERED: ACETAMINOPHEN 650 MG SUPP.RECT. PR PRN (19:45)
[2019-08-21] MEDS ORDERED: 0.9 % SODIUM CHLORIDE 10 ML DISP.SYRIN. IV PRN (19:45)
[2019-08-21] MEDS ORDERED: ALBUTEROL SULFATE 2.5 MG/3 ML NEBU. NEB PRN (19:45)
--- NOTE | 2019-08-21 20:00 | NUR ---
Pt in bed assessment completed, pt at bedside pt denied pain at time of assessment.Will resume care and continue to monitor pt.
[2019-08-21] MEDS: LACTOBACILLUS RHAMNOSUS GG 1 CAPSULE. PO SCH (20:58)
[2019-08-21] MEDS ORDERED: CIPROFLOXACIN 200MG PREMIX 100 ML IV SCH (21:00)
[2019-08-21] MEDS: PIPERACILLIN/TAZOBACTAM 2.25 GM in IV NORMAL SALINE 50ML 50 ML IV SCH (21:34)
[2019-08-21 22:58] VITALS: BP 102/55
[2019-08-22] MEDS ORDERED: PIPERACILLIN/TAZOBACTAM 3.375 GM in IV NORMAL SALINE 50ML 50 ML IV SCH ×2
[2019-08-22 02:56] VITALS: BP 124/59
[2019-08-22] MEDS: IV NORMAL SALINE 1000ML BAG 1,000 ML IV SCH ×4 (02:56→15:22)
[2019-08-22] MEDS: PIPERACILLIN/TAZOBACTAM 2.25 GM in IV NORMAL SALINE 50ML 50 ML IV SCH ×3 (05:56→21:57)
[2019-08-22 07:00] VITALS: BP 144/67
[2019-08-22 07:09] LABS: BASO % 0 % (0-3); EOS # 0.1 x10^3/uL (0.0-0.7); EOS % 1 % (0-3); HEMATOCRIT 33.6 % (36.0-47.0); HEMOGLOBIN 11.9 g/dL (12.0-15.5); LYMPH # 1.2 x10^3/uL (1.0-4.8); LYMPH % 13 % (24-48); MEAN CORPUSCULAR HEMOGLOBIN 29 pg (25-35); MEAN CORPUSCULAR HGB CONC 36 g/dL (31-37); MEAN CORPUSCULAR VOLUME 83 fL (79-100); MONO # 0.4 x10^3/uL (0.0-1.1); MONO % 4 % (0-9); NEUT # 7.1 x10^3/uL (1.8-7.7); NEUT % 81 % (31-73); PLATELET COUNT 183 x10^3/uL (140-400); RED BLOOD COUNT 4.06 x10^6/uL (3.50-5.40); RED CELL DISTRIBUTION WIDTH 12.9 % (11.5-14.5); WHITE BLOOD COUNT 8.8 x10^3/uL (4.0-11.0)
--- NOTE | 2019-08-22 07:13 | EKG ---
[facility] [address] [place] [address] Test Date: 2019-08-21 Test Time: 11:52:27 Pat Name: AMEE VERDIN Department: Room: Gender: F Registration Specialist: : [id number] Requested By: MERLE HINOJOSA Order Number: [id number] Reading MD: Measurements Intervals [place] Rate: 102 P: 55 IL: 152 QRS: 36 QRSD: 76 T: 32 QT: 352 QTc: 463 Interpretive Statements SINUS TACHYCARDIA QRS(T) CONTOUR ABNORMALITY CONSIDER ANTEROSEPTAL MYOCARDIAL DAMAGE POSSIBLY ABNORMAL ECG RI6.01 No previous ECG available for comparison
[2019-08-22 08:00] LABS: ALBUMIN 1.8 g/dL (3.4-5.0); ALBUMIN/GLOBULIN RATIO 0.4 (1.0-1.7); CALCIUM 8.1 mg/dL (8.5-10.1); GFR 24.7; POTASSIUM 3.2 mmol/L (3.5-5.1); TOTAL BILIRUBIN 4.9 mg/dL (0.2-1.0); TOTAL PROTEIN 6.9 g/dL (6.4-8.2)
[2019-08-22] MEDS: LACTOBACILLUS RHAMNOSUS GG 1 CAPSULE. PO SCH ×2 (09:24→20:46)
[2019-08-22] MEDS: ENOXAPARIN 30 MG/0.3 ML SYRINGE. SQ SCH (09:25)
[2019-08-22 11:00] VITALS: BP 142/63
--- NOTE | 2019-08-22 11:47 | CONS ---
DATE OF CONSULTATION: 08/22/2019 REFERRING PHYSICIAN: Sujit Kingsley MD REASON FOR CONSULTATION: Sepsis. HISTORY OF PRESENT ILLNESS: A 69-year-old female who presented to ED with complaints of nausea, vomiting, one bout of diarrhea, dizziness, weakness. The patient's p.o. intake was poor. She was seen in the ER on 08/19/2019, was diagnosed with UTI, was given Keflex. She started having symptoms immediately after that, so she stopped taking Keflex 2 days after admission. White count in ED was elevated at 15.3, hemoglobin of 13.2, neutrophil of 79% with 14% bands. Her creatinine was elevated at 2.5 with sodium of 129, potassium of 3.4, bilirubin of 4.8 and LFTs were elevated. UDS was negative. UA showed large leukocyte esterase, wbc's too numerous to count. She underwent abdominal and pelvic CT, which showed no acute abdominal or pelvic abnormality, minimal distal colon diverticulosis. The patient had chest x-ray, which was negative for infiltrate. She was started on IV Zosyn. She also is continued on Cipro, which was started in the ER. ID consult has been requested for antibiotic management. Today, the patient states she feels a little better, still has some nausea, no vomiting. Denies any further episodes of diarrhea. Denies any abdominal pain. Denies any fevers or chills. P.o. intake is poor. Denies any headache, cough, shortness of breath, chest pain, constipation, rash, sick contact. PAST MEDICAL HISTORY: Diabetes mellitus 2, hypertension. PAST SURGICAL HISTORY: Appendectomy, cholecystectomy, right arm and wrist surgery, right ear surgery. SOCIAL HISTORY: Denies smoking, ETOH or illicit drug use. , lives with . FAMILY HISTORY: As per HPI. CURRENT MEDICATIONS: IV Zosyn, ciprofloxacin, famotidine, Zofran. Other medications reviewed in medication list. The patient was on Keflex prior to admission. ALLERGIES: No known drug allergies. REVIEW OF SYSTEMS: Negative except for above in HPI. PHYSICAL EXAMINATION: VITAL SIGNS: Temperature 97.5, pulse 87, respiratory rate 18, blood pressure 103/59, oxygen saturation 96% on room air. GENERAL: Alert, oriented x 3, female, weak appearing, tired, sitting in chair, cooperative, pleasant. HEENT: Normocephalic, atraumatic, anicteric. No thrush. NECK: Supple, no JVD. LUNGS: Clear bilaterally. HEART: S1, S2. No gallops or murmurs. ABDOMEN: Soft, nontender, nondistended, no rebound, no guarding. BACK: Reveals normal curvature. No CVA tenderness. EXTREMITIES: No edema, no cyanosis. DERMATOLOGIC: Warm and dry. No generalized rash. NEUROLOGIC: Alert and oriented x 3, grossly nonfocal. PSYCHIATRIC: Cooperative, appropriate mood and affect. LABORATORY DATA: WBC 8.8, was 15.3, hemoglobin 11.9, hematocrit 33.6, platelets 183. Sodium 129, potassium 3.4, chloride 90, bicarbonate 26, BUN 40, creatinine 2.5, total bilirubin 4.8, calcium 8.3, AST 71, ALT 52, alkaline phosphatase 269, albumin 2.1. UA, large leukocyte esterase, wbc's too numerous to count, large blood. UDS negative. IMAGING: CT abdomen and pelvis as above in the HPI. Chest x-ray negative for infiltrate. IMPRESSION: 1. Sepsis. 2. Leukocytosis and lactic acidosis. 3. Urinary tract infection, failed outpatient Keflex. 4. Acute kidney injury. 5. Abnormal liver function tests. 6. Nausea and vomiting prior to admission. 7. Diarrhea, now resolved. 8. Orthostasis, resolving. 9. Diabetes mellitus. RECOMMENDATIONS: 1. Continue Zosyn, adjust dose according to renal function. 2. Discontinue Cipro. 3. Follow up labs and cultures. 4. Continue supportive care. 5. Monitor kidney and liver functions closely. Discussed with at bedside. Discussed with nursing staff. Thank you, Dr. Kingsley, for consulting Infectious Disease to participate in this patient's care. We will follow along with you. LILIA GRUBER MD DR: PRUDENCIO/marlena JOB#: [id number] / [id number] BONNIE
--- NOTE | 2019-08-22 12:29 | PDOC2 ---
CONSULT Date of Consult Date of Consult DATE: 08/22/19 TIME: 12:15 Reason for Consult Reason for Consult: LUCIANA Source Source: Chart review, Patient History of Present Illness Reason for Visit: Pt is 69-year-old female who presented to ED with complaints of nausea, vomiting, one bout of diarrhea, dizziness, weakness and poor PO intake She was seen in the ER on 08/19/2019, was diagnosed with UTI, was given Keflex. She started having above symptoms immediately after that, She states she has been taking Ibuprofen 2 /day for 1 month but not every day . Denies any Past Hx of LUCIANA or CKD. Has Diabetes not requiring meds per pt. Denies any other OTC meds or supplements Currently states she is feeling much better Labs in the ER - WBC elevated,neutrophil of 79% with 14% bands. Creatinine was elevated at 2.5 with sodium of 129, potassium of 3.4, LFTs including bilirubin elevated. UA showed large leukocyte esterase, wbc's too numerous to count. CT abdomen and Pelvis- showed no acute abdominal or pelvic abnormality, minimal distal colon diverticulosis. Past Medical History Cardiovascular: HTN Family History Family History Sister DX of Liver cancer, Other sister- Cirrhosis, Brother Cancer- details unknown to pt No FHx of ESRD Family History: High Cholestrol, Hypertension Social History No ALCOHOL: none Drugs: None Current Problem List Problem List Problems Medical Problems: (1) Acute kidney injury Status: Acute (2) Orthostatic hypotension Status: Acute Current Medications Current Medications Current Medications Sodium Chloride 1,000 ml @ 1,000 mls/hr Q1H IV Last administered on 08/21/19at 11:52; Start 08/21/19 at 11:38; Stop 08/21/19 at 12:37; Status DC Ondansetron HCl (Zofran) 4 mg 1X ONCE IV Last administered on 08/21/19at 11:51; Start 08/21/19 at 11:45; Stop 08/21/19 at 11:46; Status DC Famotidine (Pepcid Vial) 20 mg 1X ONCE IVP Last administered on 08/21/19at 11:51; Start 08/21/19 at 11:45; Stop 08/21/19 at 11:46; Status DC Ondansetron HCl (Zofran) 4 mg PRN Q8HRS PRN IV NAUSEA/VOMITING; Start 08/21/19 at 14:00; Stop 08/22/19 at 13:59 Fentanyl Citrate (Fentanyl 2ml Vial) 50 mcg PRN Q1HR PRN IV PAIN; Start 08/21/19 at 14:00; Stop 08/22/19 at 13:59 Sodium Chloride 1,000 ml @ 100 mls/hr Q10H IV Last administered on 08/21/19at 14:05; Start 08/21/19 at 13:55; Stop 08/22/19 at 13:54 Acetaminophen (Tylenol) 650 mg PRN Q4HRS PRN PO FEVER; Start 08/21/19 at 14:00; Stop 08/22/19 at 13:59 Ciprofloxacin/ Dextrose 200 ml @ 200 mls/hr Q24H IV Last administered on 08/21/19at 15:21; Start 08/21/19 at 15:00; Stop 08/22/19 at 11:06; Status DC Lactobacillus Rhamnosus (Culturelle) 1 cap BID PO Last administered on 08/22/19at 09:24; Start 08/21/19 at 21:00 Ciprofloxacin/ Dextrose 100 ml @ 100 mls/hr Q12HR IV ; Start 08/21/19 at 21:00; Stop 08/21/19 at 19:34; Status DC Piperacillin Sod/ Tazobactam Sod 3.375 gm/Sodium Chloride 50 ml @ 100 mls/hr Q6HRS IV ; Start 08/22/19 at 00:00; Status UNV Sodium Chloride (Normal Saline Flush) 3 ml QSHIFT PRN IV AFTER MEDS AND BLOOD DRAWS; Start 08/21/19 at 19:45 Sodium Chloride 1,000 ml @ 100 mls/hr Q10H IV Last administered on 08/22/19at 02:56; Start 08/21/19 at 19:32 Ondansetron HCl (Zofran) 4 mg PRN Q4HRS PRN IV NAUSEA/VOMITING; Start 08/21/19 at 19:45 Acetaminophen (Tylenol) 650 mg PRN Q4HRS PRN PO TEMP OVER 100.4F OR MILD PAIN; Start 08/21/19 at 19:45 Acetaminophen (Tylenol Supp) 650 mg PRN Q4HRS PRN HI TEMP OVER 100.4F OR MILD PAIN; Start 08/21/19 at 19:45 Clonidine HCl (Catapres) 0.1 mg PRN Q6HRS PRN PO SBP>160 OR DBP>90; Start 08/21/19 at 19:45 Docusate Sodium (Colace) 100 mg PRN BID PRN PO HARD STOOLS; Start 08/21/19 at 19:45 Albuterol Sulfate (Ventolin Neb Soln) 2.5 mg PRN Q4HRS PRN NEB SHORTNESS OF BR EATH; Start 08/21/19 at 19:45 Guaifenesin (Robitussin) 200 mg PRN Q4HRS PRN PO COUGH; Start 08/21/19 at 19:45 Lorazepam (Ativan) 0.5 mg PRN Q4HRS PRN PO ANXIETY / AGITATION; Start 08/21/19 at 19:45 Enoxaparin Sodium (Lovenox 30mg Syringe) 30 mg DAILY SQ Last administered on 08/22/19at 09:25; Start 08/22/19 at 09:00 Piperacillin Sod/ Tazobactam Sod 2.25 gm/Sodium Chloride 50 ml @ 100 mls/hr Q8HRS IV Last administered on 08/22/19at 05:56; Start 08/21/19 at 22:00 Active Scripts Active Diclofenac Potassium 50 Mg Tablet 1 Tab PO BID 3 Days Keflex (Cephalexin) 500 Mg Capsule 2 Cap PO Q12HR 5 Days Allergies Allergies: Coded Allergies: No Known Drug Allergies (Unverified , 02/20/15) ROS Review of System Per HPI Physical Exam Physical Exam GENERAL:NAD HEENT: anicteric.OM mildly dry NECK: Supple, no JVD. LUNGS: Clear bilaterally. HEART: S1, S2. No gallops or murmurs. ABDOMEN: Soft, nontender, EXTREMITIES: No edema, no cyanosis. SKIN No generalized rash. NEUROLOGIC: Alert and oriented x 3, grossly nonfocal. PSYCHIATRIC: Cooperative, appropriate mood and affect. No mercedes, No SP or CVA tenderness Vital Signs Vital Signs Date Time Temp Pulse Resp B/P (MAP) Pulse Ox O2 Delivery O2 Flow Rate FiO2 08/22/19 11:00 97.6 92 18 142/63 (89) 96 Room Air 97.6 Assessment & Plan LUCIANA- Pre-renal 2/2 Hypotension due to sepsis/UTI , some use of NSAID Cr peaked at 2.5-->2.0 Improving with IVF , CT scan Unremarkable Kidneys and bladder Supportive care, I/O, Avoid nephrotoxins, Monitor HypoNa - improving with IVF HypoKalemia- mild, replace as needed Sepsis/ Leukocytosis and lactic acidosis. Urinary tract infection - On Abx per ID Abnormal liver function tests. Diabetes mellitus diet controlled per pt HTN- hypotensive intermittently Labs Labs Laboratory Tests Test 08/21/19 11:30 08/21/19 13:40 08/21/19 13:52 08/21/19 17:05 White Blood Count 15.3 x10^3/uL (4.0-11.0) Red Blood Count 4.53 x10^6/uL (3.50-5.40) Hemoglobin 13.2 g/dL (12.0-15.5) Hematocrit 37.9 % (36.0-47.0) Mean Corpuscular Volume 84 fL (79-100) Mean Corpuscular Hemoglobin 29 pg (25-35) Mean Corpuscular Hemoglobin Concent 35 g/dL (31-37) Red Cell Distribution Width 12.7 % (11.5-14.5) Platelet Count 220 x10^3/uL (140-400) Neutrophils (%) (Auto) 95 % (31-73) Lymphocytes (%) (Auto) 3 % (24-48) Monocytes (%) (Auto) 2 % (0-9) Eosinophils (%) (Auto) 0 % (0-3) Basophils (%) (Auto) 0 % (0-3) Neutrophils # (Auto) 14.5 x10^3/uL (1.8-7.7) Lymphocytes # (Auto) 0.4 x10^3/uL (1.0-4.8) Monocytes # (Auto) 0.3 x10^3/uL (0.0-1.1) Eosinophils # (Auto) 0.1 x10^3/uL (0.0-0.7) Basophils # (Auto) 0.0 x10^3/uL (0.0-0.2) Segmented Neutrophils % 79 % (35-66) Band Neutrophils % 14 % (0-9) Lymphocytes % 6 % (24-48) Monocytes % 1 % (0-10) Platelet Estimate Adequate (ADEQUATE) Sodium Level 129 mmol/L (136-145) Potassium Level 3.4 mmol/L (3.5-5.1) Chloride Level 90 mmol/L (98-107) Carbon Dioxide Level 26 mmol/L (21-32) Anion Gap 13 (6-14) Blood Urea Nitrogen 40 mg/dL (7-20) Creatinine 2.5 mg/dL (0.6-1.0) Estimated GFR (Cockcroft-Gault) 19.1 BUN/Creatinine Ratio 16 (6-20) Glucose Level 201 mg/dL (70-99) Calcium Level 8.3 mg/dL (8.5-10.1) Total Bilirubin 4.8 mg/dL (0.2-1.0) Aspartate Amino Transf (AST/SGOT) 71 U/L (15-37) Alanine Aminotransferase (ALT/SGPT) 52 U/L (14-59) Alkaline Phosphatase 269 U/L (46-116) Troponin I Quantitative < 0.017 ng/mL (0.000-0.055) Total Protein 7.2 g/dL (6.4-8.2) Albumin 2.1 g/dL (3.4-5.0) Albumin/Globulin Ratio 0.4 (1.0-1.7) Lipase 98 U/L (73-393) Lactic Acid Level 2.1 mmol/L (0.4-2.0) 2.0 mmol/L (0.4-2.0) Urine Collection Type Unknown Urine Color [place] Urine Clarity Clear Urine pH 6.0 Urine Specific [place] 1.010 Urine Protein 30 mg/dL (NEG-TRACE) Urine Glucose (UA) Negative mg/dL (NEG) Urine Ketones (Stick) Negative mg/dL (NEG) Urine Blood Large (NEG) Urine Nitrite Negative (NEG) Urine Bilirubin Small (NEG) Urine Urobilinogen Dipstick 2.0 mg/dL (0.2 mg/dL) Urine Leukocyte Esterase Large (NEG) Urine RBC 20-40 /HPF (0-2) Urine WBC Tntc /HPF (0-4) Urine Squamous Epithelial Cells Mod /LPF Urine Bacteria Few /HPF (0-FEW) Urine Opiates Screen Neg (NEG) Urine Methadone Screen Neg (NEG) Urine Barbiturates Neg (NEG) Urine Phencyclidine Screen Neg (NEG) Urine Amphetamine/Methamphetamine Neg (NEG) Urine Benzodiazepines Screen Neg (NEG) Urine Cocaine Screen Neg (NEG) Urine Cannabinoids Screen Neg (NEG) Urine Ethyl Alcohol Neg (NEG) Test 08/22/19 05:35 08/22/19 08:20 08/22/19 11:23 White Blood Count 8.8 x10^3/uL (4.0-11.0) Red Blood Count 4.06 x10^6/uL (3.50-5.40) Hemoglobin 11.9 g/dL (12.0-15.5) Hematocrit 33.6 % (36.0-47.0) Mean Corpuscular Volume 83 fL (79-100) Mean Corpuscular Hemoglobin 29 pg (25-35) Mean Corpuscular Hemoglobin Concent 36 g/dL (31-37) Red Cell Distribution Width 12.9 % (11.5-14.5) Platelet Count 183 x10^3/uL (140-400) Neutrophils (%) (Auto) 81 % (31-73) Lymphocytes (%) (Auto) 13 % (24-48) Monocytes (%) (Auto) 4 % (0-9) Eosinophils (%) (Auto) 1 % (0-3) Basophils (%) (Auto) 0 % (0-3) Neutrophils # (Auto) 7.1 x10^3/uL (1.8-7.7) Lymphocytes # (Auto) 1.2 x10^3/uL (1.0-4.8) Monocytes # (Auto) 0.4 x10^3/uL (0.0-1.1) Eosinophils # (Auto) 0.1 x10^3/uL (0.0-0.7) Basophils # (Auto) 0.0 x10^3/uL (0.0-0.2) Sodium Level 134 mmol/L (136-145) Potassium Level 3.2 mmol/L (3.5-5.1) Chloride Level 98 mmol/L (98-107) Carbon Dioxide Level 25 mmol/L (21-32) Anion Gap 11 (6-14) Blood Urea Nitrogen 42 mg/dL (7-20) Creatinine 2.0 mg/dL (0.6-1.0) Estimated GFR (Cockcroft-Gault) 24.7 BUN/Creatinine Ratio 21 (6-20) Glucose Level 95 mg/dL (70-99) Calcium Level 8.1 mg/dL (8.5-10.1) Total Bilirubin 4.9 mg/dL (0.2-1.0) Aspartate Amino Transf (AST/SGOT) 66 U/L (15-37) Alanine Aminotransferase (ALT/SGPT) 45 U/L (14-59) Alkaline Phosphatase 272 U/L (46-116) Total Protein 6.9 g/dL (6.4-8.2) Albumin 1.8 g/dL (3.4-5.0) Albumin/Globulin Ratio 0.4 (1.0-1.7) Glucose (Fingerstick) 98 mg/dL (70-99) 170 mg/dL (70-99) Laboratory Tests Test 08/21/19 13:40 08/21/19 13:52 08/21/19 17:05 08/22/19 05:35 Lactic Acid Level 2.1 mmol/L (0.4-2.0) 2.0 mmol/L (0.4-2.0) Urine Collection Type Unknown Urine Color [place] Urine Clarity Clear Urine pH 6.0 Urine Specific [place] 1.010 Urine Protein 30 mg/dL (NEG-TRACE) Urine Glucose (UA) Negative mg/dL (NEG) Urine Ketones (Stick) Negative mg/dL (NEG) Urine Blood Large (NEG) Urine Nitrite Negative (NEG) Urine Bilirubin Small (NEG) Urine Urobilinogen Dipstick 2.0 mg/dL (0.2 mg/dL) Urine Leukocyte Esterase Large (NEG) Urine RBC 20-40 /HPF (0-2) Urine WBC Tntc /HPF (0-4) Urine Squamous Epithelial Cells Mod /LPF Urine Bacteria Few /HPF (0-FEW) Urine Opiates Screen Neg (NEG) Urine Methadone Screen Neg (NEG) Urine Barbiturates Neg (NEG) Urine Phencyclidine Screen Neg (NEG) Urine Amphetamine/Methamphetamine Neg (NEG) Urine Benzodiazepines Screen Neg (NEG) Urine Cocaine Screen Neg (NEG) Urine Cannabinoids Screen Neg (NEG) Urine Ethyl Alcohol Neg (NEG) White Blood Count 8.8 x10^3/uL (4.0-11.0) Red Blood Count 4.06 x10^6/uL (3.50-5.40) Hemoglobin 11.9 g/dL (12.0-15.5) Hematocrit 33.6 % (36.0-47.0) Mean Corpuscular Volume 83 fL (79-100) Mean Corpuscular Hemoglobin 29 pg (25-35) Mean Corpuscular Hemoglobin Concent 36 g/dL (31-37) Red Cell Distribution Width 12.9 % (11.5-14.5) Platelet Count 183 x10^3/uL (140-400) Neutrophils (%) (Auto) 81 % (31-73) Lymphocytes (%) (Auto) 13 % (24-48) Monocytes (%) (Auto) 4 % (0-9) Eosinophils (%) (Auto) 1 % (0-3) Basophils (%) (Auto) 0 % (0-3) Neutrophils # (Auto) 7.1 x10^3/uL (1.8-7.7) Lymphocytes # (Auto) 1.2 x10^3/uL (1.0-4.8) Monocytes # (Auto) 0.4 x10^3/uL (0.0-1.1) Eosinophils # (Auto) 0.1 x10^3/uL (0.0-0.7) Basophils # (Auto) 0.0 x10^3/uL (0.0-0.2) Sodium Level 134 mmol/L (136-145) Potassium Level 3.2 mmol/L (3.5-5.1) Chloride Level 98 mmol/L (98-107) Carbon Dioxide Level 25 mmol/L (21-32) Anion Gap 11 (6-14) Blood Urea Nitrogen 42 mg/dL (7-20) Creatinine 2.0 mg/dL (0.6-1.0) Estimated GFR (Cockcroft-Gault) 24.7 BUN/Creatinine Ratio 21 (6-20) Glucose Level 95 mg/dL (70-99) Calcium Level 8.1 mg/dL (8.5-10.1) Total Bilirubin 4.9 mg/dL (0.2-1.0) Aspartate Amino Transf (AST/SGOT) 66 U/L (15-37) Alanine Aminotransferase (ALT/SGPT) 45 U/L (14-59) Alkaline Phosphatase 272 U/L (46-116) Total Protein 6.9 g/dL (6.4-8.2) Albumin 1.8 g/dL (3.4-5.0) Albumin/Globulin Ratio 0.4 (1.0-1.7) Test 08/22/19 08:20 08/22/19 11:23 Glucose (Fingerstick) 98 mg/dL (70-99) 170 mg/dL (70-99) Review All relevant outside records, renal labs, imaging studies, telemetry/EKG's were reviewed. Images Images CT scan abd /Pelvis w/o Contrast --- Evaluation of solid organs and bowel is limited without oral and IV contrast, decreasing sensitivity for detection of pathology. Groundglass opacities in the lung bases may be atelectasis or alveolar edema or due to small airways disease. Cardiac size normal. Calcified granulomas in the spleen. Gallbladder not seen, presumably surgically absent. Normal variant [place] lobe. The liver is homogeneous. Pancreas, adrenal glands, and abdominal aorta caliber are normal. There are a few upper limits of normal in size retroperitoneal lymph nodes. No renal calculus. No hydronephrosis. Stomach unremarkable. No dilated small bowel. There are a few diverticula of the distal colon without inflammation. No colon wall thickening is seen. Appendix not identified. No secondary signs of appendicitis. No abdominal free fluid. The urinary bladder is normal. Anteverted uterus. No pelvic free fluid. Ovaries relatively symmetric. No acute bone abnormality. IMPRESSION: 1. No acute abdominal or pelvic abnormality. 2. Minimal distal colon diverticulosis.\ CxR-- No convincing infiltrate is identified by radiograph. UMER THORNTON MD Aug 22, 2019 12:29
[2019-08-22] MEDS ORDERED: POTASSIUM CHLORIDE 20 MEQ TABLET.ER. PO ONE (13:00)
--- NOTE | 2019-08-22 13:16 | PDOC ---
PROGRESS NOTES Chief Complaint Chief Complaint 1. sepsis and Acute pyelonephritis, UTI 2. Acute renal failure 3. INTRACTABLE NAUSEA AND VOMITING 4. DEHYDRATION 5. DIABETES 6. . HTN 7. severe protein malnutrition, POA History of Present Illness History of Present Illness renal and ID following blood cx cont IV abx replace potassium, hypokalemia today Vitals Vitals Vital Signs Date Time Temp Pulse Resp B/P (MAP) Pulse Ox O2 Delivery O2 Flow Rate FiO2 08/22/19 11:00 97.6 92 18 142/63 (89) 96 Room Air 97.6 Physical Exam General: Alert, Oriented X3, Cooperative Abdomen: Soft Labs LABS Laboratory Tests Test 08/21/19 13:40 08/21/19 13:52 08/21/19 17:05 08/22/19 05:35 Lactic Acid Level 2.1 mmol/L (0.4-2.0) 2.0 mmol/L (0.4-2.0) Urine Collection Type Unknown Urine Color [place] Urine Clarity Clear Urine pH 6.0 Urine Specific [place] 1.010 Urine Protein 30 mg/dL (NEG-TRACE) Urine Glucose (UA) Negative mg/dL (NEG) Urine Ketones (Stick) Negative mg/dL (NEG) Urine Blood Large (NEG) Urine Nitrite Negative (NEG) Urine Bilirubin Small (NEG) Urine Urobilinogen Dipstick 2.0 mg/dL (0.2 mg/dL) Urine Leukocyte Esterase Large (NEG) Urine RBC 20-40 /HPF (0-2) Urine WBC Tntc /HPF (0-4) Urine Squamous Epithelial Cells Mod /LPF Urine Bacteria Few /HPF (0-FEW) Urine Opiates Screen Neg (NEG) Urine Methadone Screen Neg (NEG) Urine Barbiturates Neg (NEG) Urine Phencyclidine Screen Neg (NEG) Urine Amphetamine/Methamphetamine Neg (NEG) Urine Benzodiazepines Screen Neg (NEG) Urine Cocaine Screen Neg (NEG) Urine Cannabinoids Screen Neg (NEG) Urine Ethyl Alcohol Neg (NEG) White Blood Count 8.8 x10^3/uL (4.0-11.0) Red Blood Count 4.06 x10^6/uL (3.50-5.40) Hemoglobin 11.9 g/dL (12.0-15.5) Hematocrit 33.6 % (36.0-47.0) Mean Corpuscular Volume 83 fL (79-100) Mean Corpuscular Hemoglobin 29 pg (25-35) Mean Corpuscular Hemoglobin Concent 36 g/dL (31-37) Red Cell Distribution Width 12.9 % (11.5-14.5) Platelet Count 183 x10^3/uL (140-400) Neutrophils (%) (Auto) 81 % (31-73) Lymphocytes (%) (Auto) 13 % (24-48) Monocytes (%) (Auto) 4 % (0-9) Eosinophils (%) (Auto) 1 % (0-3) Basophils (%) (Auto) 0 % (0-3) Neutrophils # (Auto) 7.1 x10^3/uL (1.8-7.7) Lymphocytes # (Auto) 1.2 x10^3/uL (1.0-4.8) Monocytes # (Auto) 0.4 x10^3/uL (0.0-1.1) Eosinophils # (Auto) 0.1 x10^3/uL (0.0-0.7) Basophils # (Auto) 0.0 x10^3/uL (0.0-0.2) Sodium Level 134 mmol/L (136-145) Potassium Level 3.2 mmol/L (3.5-5.1) Chloride Level 98 mmol/L (98-107) Carbon Dioxide Level 25 mmol/L (21-32) Anion Gap 11 (6-14) Blood Urea Nitrogen 42 mg/dL (7-20) Creatinine 2.0 mg/dL (0.6-1.0) Estimated GFR (Cockcroft-Gault) 24.7 BUN/Creatinine Ratio 21 (6-20) Glucose Level 95 mg/dL (70-99) Calcium Level 8.1 mg/dL (8.5-10.1) Total Bilirubin 4.9 mg/dL (0.2-1.0) Aspartate Amino Transf (AST/SGOT) 66 U/L (15-37) Alanine Aminotransferase (ALT/SGPT) 45 U/L (14-59) Alkaline Phosphatase 272 U/L (46-116) Total Protein 6.9 g/dL (6.4-8.2) Albumin 1.8 g/dL (3.4-5.0) Albumin/Globulin Ratio 0.4 (1.0-1.7) Test 08/22/19 08:20 08/22/19 11:23 Glucose (Fingerstick) 98 mg/dL (70-99) 170 mg/dL (70-99) Assessment and Plan Assessmemt and Plan Problems Medical Problems: (1) Acute kidney injury Status: Acute (2) Orthostatic hypotension Status: Acute Comment Review of Relevant I have reviewed the following items virgie (where applicable) has been applied. Labs Laboratory Tests Test 08/21/19 11:30 08/21/19 13:40 08/21/19 13:52 08/21/19 17:05 White Blood Count 15.3 x10^3/uL (4.0-11.0) Red Blood Count 4.53 x10^6/uL (3.50-5.40) Hemoglobin 13.2 g/dL (12.0-15.5) Hematocrit 37.9 % (36.0-47.0) Mean Corpuscular Volume 84 fL (79-100) Mean Corpuscular Hemoglobin 29 pg (25-35) Mean Corpuscular Hemoglobin Concent 35 g/dL (31-37) Red Cell Distribution Width 12.7 % (11.5-14.5) Platelet Count 220 x10^3/uL (140-400) Neutrophils (%) (Auto) 95 % (31-73) Lymphocytes (%) (Auto) 3 % (24-48) Monocytes (%) (Auto) 2 % (0-9) Eosinophils (%) (Auto) 0 % (0-3) Basophils (%) (Auto) 0 % (0-3) Neutrophils # (Auto) 14.5 x10^3/uL (1.8-7.7) Lymphocytes # (Auto) 0.4 x10^3/uL (1.0-4.8) Monocytes # (Auto) 0.3 x10^3/uL (0.0-1.1) Eosinophils # (Auto) 0.1 x10^3/uL (0.0-0.7) Basophils # (Auto) 0.0 x10^3/uL (0.0-0.2) Segmented Neutrophils % 79 % (35-66) Band Neutrophils % 14 % (0-9) Lymphocytes % 6 % (24-48) Monocytes % 1 % (0-10) Platelet Estimate Adequate (ADEQUATE) Sodium Level 129 mmol/L (136-145) Potassium Level 3.4 mmol/L (3.5-5.1) Chloride Level 90 mmol/L (98-107) Carbon Dioxide Level 26 mmol/L (21-32) Anion Gap 13 (6-14) Blood Urea Nitrogen 40 mg/dL (7-20) Creatinine 2.5 mg/dL (0.6-1.0) Estimated GFR (Cockcroft-Gault) 19.1 BUN/Creatinine Ratio 16 (6-20) Glucose Level 201 mg/dL (70-99) Calcium Level 8.3 mg/dL (8.5-10.1) Total Bilirubin 4.8 mg/dL (0.2-1.0) Aspartate Amino Transf (AST/SGOT) 71 U/L (15-37) Alanine Aminotransferase (ALT/SGPT) 52 U/L (14-59) Alkaline Phosphatase 269 U/L (46-116) Troponin I Quantitative < 0.017 ng/mL (0.000-0.055) Total Protein 7.2 g/dL (6.4-8.2) Albumin 2.1 g/dL (3.4-5.0) Albumin/Globulin Ratio 0.4 (1.0-1.7) Lipase 98 U/L (73-393) Lactic Acid Level 2.1 mmol/L (0.4-2.0) 2.0 mmol/L (0.4-2.0) Urine Collection Type Unknown Urine Color [place] Urine Clarity Clear Urine pH 6.0 Urine Specific [place] 1.010 Urine Protein 30 mg/dL (NEG-TRACE) Urine Glucose (UA) Negative mg/dL (NEG) Urine Ketones (Stick) Negative mg/dL (NEG) Urine Blood Large (NEG) Urine Nitrite Negative (NEG) Urine Bilirubin Small (NEG) Urine Urobilinogen Dipstick 2.0 mg/dL (0.2 mg/dL) Urine Leukocyte Esterase Large (NEG) Urine RBC 20-40 /HPF (0-2) Urine WBC Tntc /HPF (0-4) Urine Squamous Epithelial Cells Mod /LPF Urine Bacteria Few /HPF (0-FEW) Urine Opiates Screen Neg (NEG) Urine Methadone Screen Neg (NEG) Urine Barbiturates Neg (NEG) Urine Phencyclidine Screen Neg (NEG) Urine Amphetamine/Methamphetamine Neg (NEG) Urine Benzodiazepines Screen Neg (NEG) Urine Cocaine Screen Neg (NEG) Urine Cannabinoids Screen Neg (NEG) Urine Ethyl Alcohol Neg (NEG) Test 08/22/19 05:35 08/22/19 08:20 08/22/19 11:23 White Blood Count 8.8 x10^3/uL (4.0-11.0) Red Blood Count 4.06 x10^6/uL (3.50-5.40) Hemoglobin 11.9 g/dL (12.0-15.5) Hematocrit 33.6 % (36.0-47.0) Mean Corpuscular Volume 83 fL (79-100) Mean Corpuscular Hemoglobin 29 pg (25-35) Mean Corpuscular Hemoglobin Concent 36 g/dL (31-37) Red Cell Distribution Width 12.9 % (11.5-14.5) Platelet Count 183 x10^3/uL (140-400) Neutrophils (%) (Auto) 81 % (31-73) Lymphocytes (%) (Auto) 13 % (24-48) Monocytes (%) (Auto) 4 % (0-9) Eosinophils (%) (Auto) 1 % (0-3) Basophils (%) (Auto) 0 % (0-3) Neutrophils # (Auto) 7.1 x10^3/uL (1.8-7.7) Lymphocytes # (Auto) 1.2 x10^3/uL (1.0-4.8) Monocytes # (Auto) 0.4 x10^3/uL (0.0-1.1) Eosinophils # (Auto) 0.1 x10^3/uL (0.0-0.7) Basophils # (Auto) 0.0 x10^3/uL (0.0-0.2) Sodium Level 134 mmol/L (136-145) Potassium Level 3.2 mmol/L (3.5-5.1) Chloride Level 98 mmol/L (98-107) Carbon Dioxide Level 25 mmol/L (21-32) Anion Gap 11 (6-14) Blood Urea Nitrogen 42 mg/dL (7-20) Creatinine 2.0 mg/dL (0.6-1.0) Estimated GFR (Cockcroft-Gault) 24.7 BUN/Creatinine Ratio 21 (6-20) Glucose Level 95 mg/dL (70-99) Calcium Level 8.1 mg/dL (8.5-10.1) Total Bilirubin 4.9 mg/dL (0.2-1.0) Aspartate Amino Transf (AST/SGOT) 66 U/L (15-37) Alanine Aminotransferase (ALT/SGPT) 45 U/L (14-59) Alkaline Phosphatase 272 U/L (46-116) Total Protein 6.9 g/dL (6.4-8.2) Albumin 1.8 g/dL (3.4-5.0) Albumin/Globulin Ratio 0.4 (1.0-1.7) Glucose (Fingerstick) 98 mg/dL (70-99) 170 mg/dL (70-99) Laboratory Tests Test 08/21/19 13:40 08/21/19 13:52 08/21/19 17:05 08/22/19 05:35 Lactic Acid Level 2.1 mmol/L (0.4-2.0) 2.0 mmol/L (0.4-2.0) Urine Collection Type Unknown Urine Color [place] Urine Clarity Clear Urine pH 6.0 Urine Specific [place] 1.010 Urine Protein 30 mg/dL (NEG-TRACE) Urine Glucose (UA) Negative mg/dL (NEG) Urine Ketones (Stick) Negative mg/dL (NEG) Urine Blood Large (NEG) Urine Nitrite Negative (NEG) Urine Bilirubin Small (NEG) Urine Urobilinogen Dipstick 2.0 mg/dL (0.2 mg/dL) Urine Leukocyte Esterase Large (NEG) Urine RBC 20-40 /HPF (0-2) Urine WBC Tntc /HPF (0-4) Urine Squamous Epithelial Cells Mod /LPF Urine Bacteria Few /HPF (0-FEW) Urine Opiates Screen Neg (NEG) Urine Methadone Screen Neg (NEG) Urine Barbiturates Neg (NEG) Urine Phencyclidine Screen Neg (NEG) Urine Amphetamine/Methamphetamine Neg (NEG) Urine Benzodiazepines Screen Neg (NEG) Urine Cocaine Screen Neg (NEG) Urine Cannabinoids Screen Neg (NEG) Urine Ethyl Alcohol Neg (NEG) White Blood Count 8.8 x10^3/uL (4.0-11.0) Red Blood Count 4.06 x10^6/uL (3.50-5.40) Hemoglobin 11.9 g/dL (12.0-15.5) Hematocrit 33.6 % (36.0-47.0) Mean Corpuscular Volume 83 fL (79-100) Mean Corpuscular Hemoglobin 29 pg (25-35) Mean Corpuscular Hemoglobin Concent 36 g/dL (31-37) Red Cell Distribution Width 12.9 % (11.5-14.5) Platelet Count 183 x10^3/uL (140-400) Neutrophils (%) (Auto) 81 % (31-73) Lymphocytes (%) (Auto) 13 % (24-48) Monocytes (%) (Auto) 4 % (0-9) Eosinophils (%) (Auto) 1 % (0-3) Basophils (%) (Auto) 0 % (0-3) Neutrophils # (Auto) 7.1 x10^3/uL (1.8-7.7) Lymphocytes # (Auto) 1.2 x10^3/uL (1.0-4.8) Monocytes # (Auto) 0.4 x10^3/uL (0.0-1.1) Eosinophils # (Auto) 0.1 x10^3/uL (0.0-0.7) Basophils # (Auto) 0.0 x10^3/uL (0.0-0.2) Sodium Level 134 mmol/L (136-145) Potassium Level 3.2 mmol/L (3.5-5.1) Chloride Level 98 mmol/L (98-107) Carbon Dioxide Level 25 mmol/L (21-32) Anion Gap 11 (6-14) Blood Urea Nitrogen 42 mg/dL (7-20) Creatinine 2.0 mg/dL (0.6-1.0) Estimated GFR (Cockcroft-Gault) 24.7 BUN/Creatinine Ratio 21 (6-20) Glucose Level 95 mg/dL (70-99) Calcium Level 8.1 mg/dL (8.5-10.1) Total Bilirubin 4.9 mg/dL (0.2-1.0) Aspartate Amino Transf (AST/SGOT) 66 U/L (15-37) Alanine Aminotransferase (ALT/SGPT) 45 U/L (14-59) Alkaline Phosphatase 272 U/L (46-116) Total Protein 6.9 g/dL (6.4-8.2) Albumin 1.8 g/dL (3.4-5.0) Albumin/Globulin Ratio 0.4 (1.0-1.7) Test 08/22/19 08:20 08/22/19 11:23 Glucose (Fingerstick) 98 mg/dL (70-99) 170 mg/dL (70-99) Medications Current Medications Sodium Chloride 1,000 ml @ 1,000 mls/hr Q1H IV Last administered on 08/21/19at 11:52; Start 08/21/19 at 11:38; Stop 08/21/19 at 12:37; Status DC Ondansetron HCl (Zofran) 4 mg 1X ONCE IV Last administered on 08/21/19at 11:51; Start 08/21/19 at 11:45; Stop 08/21/19 at 11:46; Status DC Famotidine (Pepcid Vial) 20 mg 1X ONCE IVP Last administered on 08/21/19at 11:51; Start 08/21/19 at 11:45; Stop 08/21/19 at 11:46; Status DC Ondansetron HCl (Zofran) 4 mg PRN Q8HRS PRN IV NAUSEA/VOMITING; Start 08/21/19 at 14:00; Stop 08/22/19 at 13:59 Fentanyl Citrate (Fentanyl 2ml Vial) 50 mcg PRN Q1HR PRN IV PAIN; Start 08/21/19 at 14:00; Stop 08/22/19 at 13:59 Sodium Chloride 1,000 ml @ 100 mls/hr Q10H IV Last administered on 08/21/19at 14:05; Start 08/21/19 at 13:55; Stop 08/22/19 at 13:54 Acetaminophen (Tylenol) 650 mg PRN Q4HRS PRN PO FEVER; Start 08/21/19 at 14:00; Stop 08/22/19 at 13:59 Ciprofloxacin/ Dextrose 200 ml @ 200 mls/hr Q24H IV Last administered on 08/21/19at 15:21; Start 08/21/19 at 15:00; Stop 08/22/19 at 11:06; Status DC Lactobacillus Rhamnosus (Culturelle) 1 cap BID PO Last administered on 08/22/19at 09:24; Start 08/21/19 at 21:00 Ciprofloxacin/ Dextrose 100 ml @ 100 mls/hr Q12HR IV ; Start 08/21/19 at 21:00; Stop 08/21/19 at 19:34; Status DC Piperacillin Sod/ Tazobactam Sod 3.375 gm/Sodium Chloride 50 ml @ 100 mls/hr Q6HRS IV ; Start 08/22/19 at 00:00; Status UNV Sodium Chloride (Normal Saline Flush) 3 ml QSHIFT PRN IV AFTER MEDS AND BLOOD DRAWS; Start 08/21/19 at 19:45 Sodium Chloride 1,000 ml @ 100 mls/hr Q10H IV Last administered on 08/22/19at 02:56; Start 08/21/19 at 19:32 Ondansetron HCl (Zofran) 4 mg PRN Q4HRS PRN IV NAUSEA/VOMITING; Start 08/21/19 at 19:45 Acetaminophen (Tylenol) 650 mg PRN Q4HRS PRN PO TEMP OVER 100.4F OR MILD PAIN; Start 08/21/19 at 19:45 Acetaminophen (Tylenol Supp) 650 mg PRN Q4HRS PRN IA TEMP OVER 100.4F OR MILD PAIN; Start 08/21/19 at 19:45 Clonidine HCl (Catapres) 0.1 mg PRN Q6HRS PRN PO SBP>160 OR DBP>90; Start 08/21/19 at 19:45 Docusate Sodium (Colace) 100 mg PRN BID PRN PO HARD STOOLS; Start 08/21/19 at 19:45 Albuterol Sulfate (Ventolin Neb Soln) 2.5 mg PRN Q4HRS PRN NEB SHORTNESS OF BREATH; Start 08/21/19 at 19:45 Guaifenesin (Robitussin) 200 mg PRN Q4HRS PRN PO COUGH; Start 08/21/19 at 19:45 Lorazepam (Ativan) 0.5 mg PRN Q4HRS PRN PO ANXIETY / AGITATION; Start 08/21/19 at 19:45 Enoxaparin Sodium (Lovenox 30mg Syringe) 30 mg DAILY SQ Last administered on 08/22/19at 09:25; Start 08/22/19 at 09:00 Piperacillin Sod/ Tazobactam Sod 2.25 gm/Sodium Chloride 50 ml @ 100 mls/hr Q8HRS IV Last administered on 08/22/19at 05:56; Start 08/21/19 at 22:00 Potassium Chloride (Klor-Con) 40 meq 1X ONCE PO ; Start 08/22/19 at 13:00; Stop 08/22/19 at 13:01; Status DC Active Scripts Active Diclofenac Potassium 50 Mg Tablet 1 Tab PO BID 3 Days Keflex (Cephalexin) 500 Mg Capsule 2 Cap PO Q12HR 5 Days Vitals/I & O Vital Sign - Last 24 Hours 08/21/19 08/21/19 08/21/19 08/21/19 15:05 18:30 19:00 20:00 Temp 97.5 97.5 98.0 97.5 97.5 98.0 Pulse 90 87 86 Resp 18 18 18 B/P (MAP) 108/62 (77) 103/59 (74) 104/60 (75) Pulse Ox 98 96 94 O2 Delivery Room Air Room Air Room Air Room Air 08/21/19 08/21/19 08/22/19 08/22/19 21:05 22:58 02:56 07:00 Temp 98.2 97.7 97.4 98.2 97.7 97.4 Pulse 82 80 101 Resp 16 18 20 B/P (MAP) 102/55 (71) 124/59 (80) 144/67 (92) Pulse Ox 94 92 97 96 O2 Delivery Room Air Nasal Cannula Room Air Nasal Cannula 08/22/19 11:00 Temp 97.6 97.6 Pulse 92 Resp 18 B/P (MAP) 142/63 (89) Pulse Ox 96 O2 Delivery Room Air Intake and Output 08/21/19 08/21/19 08/22/19 15:00 23:00 07:00 Intake Total 100 ml 100 ml Balance 100 ml 100 ml RONDA GALLEGOS MD Aug 22, 2019 13:16
--- NOTE | 2019-08-22 13:21 | NUR ---
SS following for discharge planning. SS reviewed pt chart. Pt is from home with spouse and is currently on room air. PT recommended home with assistance. SS will continue to follow for discharge planning.
[2019-08-22 15:00] VITALS: BP 160/65
[2019-08-22 19:00] VITALS: BP 139/86
[2019-08-22 23:00] VITALS: BP 173/78
[2019-08-23] MEDS: IV NORMAL SALINE 1000ML BAG 1,000 ML IV SCH ×4 (01:32→23:07)
[2019-08-23 03:00] VITALS: BP 178/79
[2019-08-23 05:08] LABS: BASO % 0 % (0-3); EOS # 0.1 x10^3/uL (0.0-0.7); EOS % 1 % (0-3); HEMATOCRIT 32.9 % (36.0-47.0); HEMOGLOBIN 11.6 g/dL (12.0-15.5); LYMPH # 1.4 x10^3/uL (1.0-4.8); LYMPH % 19 % (24-48); MEAN CORPUSCULAR HEMOGLOBIN 29 pg (25-35); MEAN CORPUSCULAR HGB CONC 35 g/dL (31-37); MEAN CORPUSCULAR VOLUME 83 fL (79-100); MONO # 0.5 x10^3/uL (0.0-1.1); MONO % 7 % (0-9); NEUT # 5.3 x10^3/uL (1.8-7.7); NEUT % 72 % (31-73); PLATELET COUNT 137 x10^3/uL (140-400); RED BLOOD COUNT 3.96 x10^6/uL (3.50-5.40); RED CELL DISTRIBUTION WIDTH 13.2 % (11.5-14.5); WHITE BLOOD COUNT 7.4 x10^3/uL (4.0-11.0)
[2019-08-23 05:48] LABS: ALBUMIN 1.8 g/dL (3.4-5.0); ALBUMIN/GLOBULIN RATIO 0.4 (1.0-1.7); CALCIUM 8.5 mg/dL (8.5-10.1); CREATININE 1.4 mg/dL (0.6-1.0); GFR 37.3; MAGNESIUM 1.7 mg/dL (1.8-2.4); PHOSPHORUS 3.1 mg/dL (2.6-4.7); POTASSIUM 3.8 mmol/L (3.5-5.1); TOTAL BILIRUBIN 7.9 mg/dL (0.2-1.0); TOTAL PROTEIN 6.7 g/dL (6.4-8.2)
[2019-08-23] MEDS: PIPERACILLIN/TAZOBACTAM 2.25 GM in IV NORMAL SALINE 50ML 50 ML IV SCH ×3 (05:51→23:07)
[2019-08-23 07:00] VITALS: BP 175/88
--- NOTE | 2019-08-23 07:29 | PDOC ---
Infectious Disease Note Subjective: Subjective pt still has no apetite feels somewhat better no v/d/f/c Vital Signs: Vital Signs Vital Signs Date Time Temp Pulse Resp B/P (MAP) Pulse Ox O2 Delivery O2 Flow Rate FiO2 08/23/19 03:00 97.6 89 20 178/79 (112) 94 Room Air 97.6 Physical Exam: PHYSICAL EXAM GENERAL: Alert, oriented x 3, female, weak appearing, tired, sitting in chair, cooperative, pleasant. HEENT: Normocephalic, atraumatic, anicteric. No thrush. NECK: Supple, no JVD. LUNGS: Clear bilaterally. HEART: S1, S2. No gallops or murmurs. ABDOMEN: Soft, nontender, nondistended, no rebound, no guarding. BACK: Reveals normal curvature. No CVA tenderness. EXTREMITIES: No edema, no cyanosis. DERMATOLOGIC: Warm and dry. No generalized rash. NEUROLOGIC: Alert and oriented x 3, grossly nonfocal. PSYCHIATRIC: Cooperative, appropriate mood and affect. Medications: Inpatient Meds: Current Medications Medications (Trade) Dose Ordered Sig/Bere Start Time Stop Time Status Last Admin Dose Admin Acetaminophen (Tylenol Supp) 650 mg PRN Q4HRS PRN 08/21/19 19:45 Acetaminophen (Tylenol) 650 mg PRN Q4HRS PRN 08/21/19 19:45 Albuterol Sulfate (Ventolin Neb Soln) 2.5 mg PRN Q4HRS PRN 08/21/19 19:45 Ciprofloxacin/ Dextrose 100 ml @ 100 mls/hr Q12HR 08/21/19 21:00 08/21/19 19:34 DC Clonidine HCl (Catapres) 0.1 mg PRN Q6HRS PRN 08/21/19 19:45 Docusate Sodium (Colace) 100 mg PRN BID PRN 08/21/19 19:45 Enoxaparin Sodium (Lovenox 30mg Syringe) 30 mg DAILY 08/22/19 09:00 08/22/19 09:25 30 MG Famotidine (Pepcid Vial) 20 mg 1X ONCE 08/21/19 11:45 08/21/19 11:46 DC 08/21/19 11:51 20 MG Fentanyl Citrate (Fentanyl 2ml Vial) 50 mcg PRN Q1HR PRN 08/21/19 14:00 08/22/19 13:59 DC Guaifenesin (Robitussin) 200 mg PRN Q4HRS PRN 08/21/19 19:45 Lactobacillus Rhamnosus (Culturelle) 1 cap BID 08/21/19 21:00 08/22/19 20:46 1 CAP Lorazepam (Ativan) 0.5 mg PRN Q4HRS PRN 08/21/19 19:45 Ondansetron HCl (Zofran) 4 mg PRN Q4HRS PRN 08/21/19 19:45 08/22/19 17:45 4 MG Piperacillin Sod/ Tazobactam Sod 2.25 gm/Sodium Chloride 50 ml @ 100 mls/hr Q8HRS 08/21/19 22:00 08/23/19 05:51 100 MLS/HR Piperacillin Sod/ Tazobactam Sod 3.375 gm/Sodium Chloride 50 ml @ 100 mls/hr Q6HRS 08/22/19 00:00 UNV Potassium Chloride (Klor-Con) 40 meq 1X ONCE 08/22/19 13:00 08/22/19 13:01 DC 08/22/19 14:12 40 MEQ Sodium Chloride 1,000 ml @ 100 mls/hr Q10H 08/21/19 19:32 08/23/19 04:35 100 MLS/HR Sodium Chloride (Normal Saline Flush) 3 ml QSHIFT PRN 08/21/19 19:45 Labs: Lab Laboratory Tests Test 08/22/19 08:20 08/22/19 11:23 08/22/19 16:55 08/23/19 04:15 Glucose (Fingerstick) 98 mg/dL (70-99) 170 mg/dL (70-99) 146 mg/dL (70-99) White Blood Count 7.4 x10^3/uL (4.0-11.0) Red Blood Count 3.96 x10^6/uL (3.50-5.40) Hemoglobin 11.6 g/dL (12.0-15.5) Hematocrit 32.9 % (36.0-47.0) Mean Corpuscular Volume 83 fL (79-100) Mean Corpuscular Hemoglobin 29 pg (25-35) Mean Corpuscular Hemoglobin Concent 35 g/dL (31-37) Red Cell Distribution Width 13.2 % (11.5-14.5) Platelet Count 137 x10^3/uL (140-400) Neutrophils (%) (Auto) 72 % (31-73) Lymphocytes (%) (Auto) 19 % (24-48) Monocytes (%) (Auto) 7 % (0-9) Eosinophils (%) (Auto) 1 % (0-3) Basophils (%) (Auto) 0 % (0-3) Neutrophils # (Auto) 5.3 x10^3/uL (1.8-7.7) Lymphocytes # (Auto) 1.4 x10^3/uL (1.0-4.8) Monocytes # (Auto) 0.5 x10^3/uL (0.0-1.1) Eosinophils # (Auto) 0.1 x10^3/uL (0.0-0.7) Basophils # (Auto) 0.0 x10^3/uL (0.0-0.2) Sodium Level 136 mmol/L (136-145) Potassium Level 3.8 mmol/L (3.5-5.1) Chloride Level 102 mmol/L (98-107) Carbon Dioxide Level 25 mmol/L (21-32) Anion Gap 9 (6-14) Blood Urea Nitrogen 32 mg/dL (7-20) Creatinine 1.4 mg/dL (0.6-1.0) Estimated GFR (Cockcroft-Gault) 37.3 BUN/Creatinine Ratio 23 (6-20) Glucose Level 184 mg/dL (70-99) Calcium Level 8.5 mg/dL (8.5-10.1) Phosphorus Level 3.1 mg/dL (2.6-4.7) Magnesium Level 1.7 mg/dL (1.8-2.4) Total Bilirubin 7.9 mg/dL (0.2-1.0) Aspartate Amino Transf (AST/SGOT) 89 U/L (15-37) Alanine Aminotransferase (ALT/SGPT) 53 U/L (14-59) Alkaline Phosphatase 384 U/L (46-116) Total Protein 6.7 g/dL (6.4-8.2) Albumin 1.8 g/dL (3.4-5.0) Albumin/Globulin Ratio 0.4 (1.0-1.7) Objective: Assessment: 1. Sepsis. 2. Leukocytosis and lactic acidosis. 3. Urinary tract infection, failed outpatient Keflex. 4. Acute kidney injury. 5. Abnormal liver function tests. 6. Nausea and vomiting prior to admission. 7. Diarrhea, now resolved. 8. Orthostasis, resolving. 9. Diabetes mellitus. Plan: Plan of Care Continue Zosyn, adjust dose according to renal function. Follow up labs and cultures. F/U UC and BC obtain u/s abdomen d/w and LILIA Subramanian MD Aug 23, 2019 07:29
--- NOTE | 2019-08-23 08:23 | PDOC ---
SUBJECTIVE ROS States feeling better OBJECTIVE Vital Signs Vital Signs Date Time Temp Pulse Resp B/P (MAP) Pulse Ox O2 Delivery O2 Flow Rate FiO2 08/23/19 07:00 97.7 87 17 175/88 (117) 96 Room Air 97.7 I & 0 Intake and Output 08/23/19 07:00 Intake Total 3125 ml Balance 3125 ml Intake Oral 3125 ml # Voids 6 PHYSICAL EXAM Physical Exam GENERAL:NAD HEENT: anicteric.OM moist NECK: Supple, no JVD. LUNGS: Clear bilaterally. HEART: S1, S2. No gallops or murmurs. ABDOMEN: Soft, nontender, EXTREMITIES: No edema, no cyanosis. SKIN No generalized rash. NEUROLOGIC: Alert and oriented x 3, grossly nonfocal. PSYCHIATRIC: Cooperative, appropriate mood and affect. No mercedes, No SP or CVA tenderness DIAGNOSIS/ASSESSMENT Assessment & Plan LUCIANA- Pre-renal 2/2 Hypotension due to sepsis/UTI , some use of NSAID Cr peaked at 2.5-->2.0--> 1.4 Improving with IVF , CT scan Unremarkable Kidneys and bladder Supportive care, I/O, Avoid nephrotoxins, Monitor HypoNa - improving with IVF , Normal HypoKalemia- Normal, replace as needed Hypo Mg- replace as needed Sepsis/ Leukocytosis and lactic acidosis. Urinary tract infection - On Abx per ID Abnormal liver function tests. Diabetes mellitus diet controlled per pt HTN- hypotensive intermittently COMMENT/RELEVANT DATA Meds Current Medications Medications (Trade) Dose Ordered Sig/Bere Start Time Stop Time Status Last Admin Dose Admin Acetaminophen (Tylenol Supp) 650 mg PRN Q4HRS PRN 08/21/19 19:45 Acetaminophen (Tylenol) 650 mg PRN Q4HRS PRN 08/21/19 19:45 Albuterol Sulfate (Ventolin Neb Soln) 2.5 mg PRN Q4HRS PRN 08/21/19 19:45 Ciprofloxacin/ Dextrose 100 ml @ 100 mls/hr Q12HR 08/21/19 21:00 08/21/19 19:34 DC Clonidine HCl (Catapres) 0.1 mg PRN Q6HRS PRN 08/21/19 19:45 Docusate Sodium (Colace) 100 mg PRN BID PRN 08/21/19 19:45 Enoxaparin Sodium (Lovenox 30mg Syringe) 30 mg DAILY 08/22/19 09:00 08/22/19 09:25 30 MG Famotidine (Pepcid Vial) 20 mg 1X ONCE 08/21/19 11:45 08/21/19 11:46 DC 08/21/19 11:51 20 MG Fentanyl Citrate (Fentanyl 2ml Vial) 50 mcg PRN Q1HR PRN 08/21/19 14:00 08/22/19 13:59 DC Guaifenesin (Robitussin) 200 mg PRN Q4HRS PRN 08/21/19 19:45 Lactobacillus Rhamnosus (Culturelle) 1 cap BID 08/21/19 21:00 08/22/19 20:46 1 CAP Lorazepam (Ativan) 0.5 mg PRN Q4HRS PRN 08/21/19 19:45 Ondansetron HCl (Zofran) 4 mg PRN Q4HRS PRN 08/21/19 19:45 08/22/19 17:45 4 MG Piperacillin Sod/ Tazobactam Sod 2.25 gm/Sodium Chloride 50 ml @ 100 mls/hr Q8HRS 08/21/19 22:00 08/23/19 05:51 100 MLS/HR Piperacillin Sod/ Tazobactam Sod 3.375 gm/Sodium Chloride 50 ml @ 100 mls/hr Q6HRS 08/22/19 00:00 UNV Potassium Chloride (Klor-Con) 40 meq 1X ONCE 08/22/19 13:00 08/22/19 13:01 DC 08/22/19 14:12 40 MEQ Sodium Chloride 1,000 ml @ 100 mls/hr Q10H 08/21/19 19:32 08/23/19 04:35 100 MLS/HR Sodium Chloride (Normal Saline Flush) 3 ml QSHIFT PRN 08/21/19 19:45 Lab Laboratory Tests Test 08/22/19 11:23 08/22/19 16:55 08/23/19 04:15 Glucose (Fingerstick) 170 mg/dL (70-99) 146 mg/dL (70-99) White Blood Count 7.4 x10^3/uL (4.0-11.0) Red Blood Count 3.96 x10^6/uL (3.50-5.40) Hemoglobin 11.6 g/dL (12.0-15.5) Hematocrit 32.9 % (36.0-47.0) Mean Corpuscular Volume 83 fL (79-100) Mean Corpuscular Hemoglobin 29 pg (25-35) Mean Corpuscular Hemoglobin Concent 35 g/dL (31-37) Red Cell Distribution Width 13.2 % (11.5-14.5) Platelet Count 137 x10^3/uL (140-400) Neutrophils (%) (Auto) 72 % (31-73) Lymphocytes (%) (Auto) 19 % (24-48) Monocytes (%) (Auto) 7 % (0-9) Eosinophils (%) (Auto) 1 % (0-3) Basophils (%) (Auto) 0 % (0-3) Neutrophils # (Auto) 5.3 x10^3/uL (1.8-7.7) Lymphocytes # (Auto) 1.4 x10^3/uL (1.0-4.8) Monocytes # (Auto) 0.5 x10^3/uL (0.0-1.1) Eosinophils # (Auto) 0.1 x10^3/uL (0.0-0.7) Basophils # (Auto) 0.0 x10^3/uL (0.0-0.2) Sodium Level 136 mmol/L (136-145) Potassium Level 3.8 mmol/L (3.5-5.1) Chloride Level 102 mmol/L (98-107) Carbon Dioxide Level 25 mmol/L (21-32) Anion Gap 9 (6-14) Blood Urea Nitrogen 32 mg/dL (7-20) Creatinine 1.4 mg/dL (0.6-1.0) Estimated GFR (Cockcroft-Gault) 37.3 BUN/Creatinine Ratio 23 (6-20) Glucose Level 184 mg/dL (70-99) Calcium Level 8.5 mg/dL (8.5-10.1) Phosphorus Level 3.1 mg/dL (2.6-4.7) Magnesium Level 1.7 mg/dL (1.8-2.4) Total Bilirubin 7.9 mg/dL (0.2-1.0) Aspartate Amino Transf (AST/SGOT) 89 U/L (15-37) Alanine Aminotransferase (ALT/SGPT) 53 U/L (14-59) Alkaline Phosphatase 384 U/L (46-116) Total Protein 6.7 g/dL (6.4-8.2) Albumin 1.8 g/dL (3.4-5.0) Albumin/Globulin Ratio 0.4 (1.0-1.7) Results All relevant outside records, renal labs, imaging studies, telemetry/EKG's were reviewed. UMER THORNTON MD Aug 23, 2019 08:23
[2019-08-23] MEDS: LACTOBACILLUS RHAMNOSUS GG 1 CAPSULE. PO SCH ×2 (09:18→23:05)
[2019-08-23] MEDS: ENOXAPARIN 30 MG/0.3 ML SYRINGE. SQ SCH (09:18)
--- NOTE | 2019-08-23 10:21 | PDOC ---
PROGRESS NOTES Chief Complaint Chief Complaint IMPRESSION 1. sepsis and Acute pyelonephritis, UTI 2. Acute renal failure 3. INTRACTABLE NAUSEA AND VOMITING 4. DEHYDRATION 5. DIABETES 6. . HTN, suboptimal control; 7. severe protein malnutrition, POA 08/23 POOR APPETITE, CONT IV ZOSYN ADD NORVASC 5 MG PO DAILY History of Present Illness History of Present Illness impression renal and ID following blood cx cont IV abx replace potassium, hypokalemia today Vitals Vitals Vital Signs Date Time Temp Pulse Resp B/P (MAP) Pulse Ox O2 Delivery O2 Flow Rate FiO2 08/23/19 07:00 97.7 87 17 175/88 (117) 96 Room Air 97.7 Physical Exam Physical Exam GENERAL: Alert, oriented x 3, female, weak appearing, cooperative, pleasant. HEENT: Normocephalic, atraumatic, anicteric. No thrush. NECK: Supple, no JVD. LUNGS: Clear bilaterally. HEART: S1, S2. No gallops or murmurs. ABDOMEN: Soft, nontender, nondistended, no rebound, no guarding. BACK: Reveals normal curvature. No CVA tenderness. EXTREMITIES: No edema, no cyanosis. DERMATOLOGIC: Warm and dry. No generalized rash. NEUROLOGIC: Alert and oriented x 3, grossly nonfocal. PSYCHIATRIC: Cooperative, appropriate mood and affect. General: Alert, Oriented X3, Cooperative, No acute distress Heart: Regular rate Lungs: Clear Abdomen: Normal bowel sounds, Soft Extremities: No cyanosis Labs LABS RUN TIME: 1347 Specimen Inquiry PATIENT: AMEE VERDIN ACCT: [id number] LOC: [address] [place] [address] U: [id number] AGE/SX: 69/F ROOM: [facility] RE08/21/[address]: NINI CASANOVA MD : 1950 BED: 1 DIS: STATUS: ADM IN TLOC: SPEC #: [id number] CARMELA: 08/21/19 STATUS: RES REQ #: [id number] RECD: 08/21/[address] [facility] [address]: MERLE HINOJOSA APRN SOURCE: BLOOD ENTR: 08/21/[address]: SLAVA HUDSON SPDES: ORDERED: BCULT Procedure Result BLOOD CULTURE Preliminary NO GROWTH AFTER 2 DAYS Laboratory Tests Test 08/22/19 11:23 08/22/19 16:55 08/23/19 04:15 Glucose (Fingerstick) 170 mg/dL (70-99) 146 mg/dL (70-99) White Blood Count 7.4 x10^3/uL (4.0-11.0) Red Blood Count 3.96 x10^6/uL (3.50-5.40) Hemoglobin 11.6 g/dL (12.0-15.5) Hematocrit 32.9 % (36.0-47.0) Mean Corpuscular Volume 83 fL (79-100) Mean Corpuscular Hemoglobin 29 pg (25-35) Mean Corpuscular Hemoglobin Concent 35 g/dL (31-37) Red Cell Distribution Width 13.2 % (11.5-14.5) Platelet Count 137 x10^3/uL (140-400) Neutrophils (%) (Auto) 72 % (31-73) Lymphocytes (%) (Auto) 19 % (24-48) Monocytes (%) (Auto) 7 % (0-9) Eosinophils (%) (Auto) 1 % (0-3) Basophils (%) (Auto) 0 % (0-3) Neutrophils # (Auto) 5.3 x10^3/uL (1.8-7.7) Lymphocytes # (Auto) 1.4 x10^3/uL (1.0-4.8) Monocytes # (Auto) 0.5 x10^3/uL (0.0-1.1) Eosinophils # (Auto) 0.1 x10^3/uL (0.0-0.7) Basophils # (Auto) 0.0 x10^3/uL (0.0-0.2) Sodium Level 136 mmol/L (136-145) Potassium Level 3.8 mmol/L (3.5-5.1) Chloride Level 102 mmol/L (98-107) Carbon Dioxide Level 25 mmol/L (21-32) Anion Gap 9 (6-14) Blood Urea Nitrogen 32 mg/dL (7-20) Creatinine 1.4 mg/dL (0.6-1.0) Estimated GFR (Cockcroft-Gault) 37.3 BUN/Creatinine Ratio 23 (6-20) Glucose Level 184 mg/dL (70-99) Calcium Level 8.5 mg/dL (8.5-10.1) Phosphorus Level 3.1 mg/dL (2.6-4.7) Magnesium Level 1.7 mg/dL (1.8-2.4) Total Bilirubin 7.9 mg/dL (0.2-1.0) Aspartate Amino Transf (AST/SGOT) 89 U/L (15-37) Alanine Aminotransferase (ALT/SGPT) 53 U/L (14-59) Alkaline Phosphatase 384 U/L (46-116) Total Protein 6.7 g/dL (6.4-8.2) Albumin 1.8 g/dL (3.4-5.0) Albumin/Globulin Ratio 0.4 (1.0-1.7) Assessment and Plan Assessmemt and Plan Problems Medical Problems: (1) Acute kidney injury Status: Acute (2) Orthostatic hypotension Status: Acute perform stepping strategy to regain center of balance with CGA. Stairs Comments * Pt reports have 3 steps with HRs at home. Will need to assess next session. Balance Exercises * Sitting * Weight Shifting * Standing * Reaching to Floor * Backing Balance Exercises Comments * 360 deg each direction, reaching to floor, no LOB noted Other Information * PT anticipates home with family assist at discharge. Will continue to ensure safety with mobility and address balance deficits while in inpatient setting. Rehab Potential to Achieve Goals * Fair Learning Preferences * One-on-One Instruction * Demonstration * Discussion Factors Facilitating Goal Achievement * Prior level of function * Response to training Problem List (body system elements) * Balance Clinical Presentation * Stable Evaluation Complexity Level * Low Complexity Pt/caregiver agrees with plan of care/goals * Yes Patient condition at conclusion of therapy * Pt in chair * Call light in reach * Phone in reach * PtIn no apparent distress * Pt denies further needs * Visitor with patient Communicated Patient Care With (Name, Title) * Asha, RN; SULAIMAN Madrigal Goal 3 - Ambulation Assistance Required * Independent Goal 3 - Ambulation Distance * 250' Goal 3 - Ambulation Device * No Device Goal 4 - Stairs Assistance Required * Independent Goal 4 - Number of Stairs * 2-4 Goal 4 - Device on Stairs * Rail on Right * Rail on Left Treatment Plan * Therapeutic Exercise * Gait Training * Body Mechanics Training * Dynamic Balance Training Frequency of Treatment Expected * 5 visits/week Duration of Treatment Expected * 1 week Discharge Recommendations * Home with Assistance Comment Review of Relevant I have reviewed the following items virgie (where applicable) has been applied. Labs Laboratory Tests Test 08/21/19 11:30 08/21/19 13:40 08/21/19 13:52 08/21/19 17:05 White Blood Count 15.3 x10^3/uL (4.0-11.0) Red Blood Count 4.53 x10^6/uL (3.50-5.40) Hemoglobin 13.2 g/dL (12.0-15.5) Hematocrit 37.9 % (36.0-47.0) Mean Corpuscular Volume 84 fL (79-100) Mean Corpuscular Hemoglobin 29 pg (25-35) Mean Corpuscular Hemoglobin Concent 35 g/dL (31-37) Red Cell Distribution Width 12.7 % (11.5-14.5) Platelet Count 220 x10^3/uL (140-400) Neutrophils (%) (Auto) 95 % (31-73) Lymphocytes (%) (Auto) 3 % (24-48) Monocytes (%) (Auto) 2 % (0-9) Eosinophils (%) (Auto) 0 % (0-3) Basophils (%) (Auto) 0 % (0-3) Neutrophils # (Auto) 14.5 x10^3/uL (1.8-7.7) Lymphocytes # (Auto) 0.4 x10^3/uL (1.0-4.8) Monocytes # (Auto) 0.3 x10^3/uL (0.0-1.1) Eosinophils # (Auto) 0.1 x10^3/uL (0.0-0.7) Basophils # (Auto) 0.0 x10^3/uL (0.0-0.2) Segmented Neutrophils % 79 % (35-66) Band Neutrophils % 14 % (0-9) Lymphocytes % 6 % (24-48) Monocytes % 1 % (0-10) Platelet Estimate Adequate (ADEQUATE) Sodium Level 129 mmol/L (136-145) Potassium Level 3.4 mmol/L (3.5-5.1) Chloride Level 90 mmol/L (98-107) Carbon Dioxide Level 26 mmol/L (21-32) Anion Gap 13 (6-14) Blood Urea Nitrogen 40 mg/dL (7-20) Creatinine 2.5 mg/dL (0.6-1.0) Estimated GFR (Cockcroft-Gault) 19.1 BUN/Creatinine Ratio 16 (6-20) Glucose Level 201 mg/dL (70-99) Calcium Level 8.3 mg/dL (8.5-10.1) Total Bilirubin 4.8 mg/dL (0.2-1.0) Aspartate Amino Transf (AST/SGOT) 71 U/L (15-37) Alanine Aminotransferase (ALT/SGPT) 52 U/L (14-59) Alkaline Phosphatase 269 U/L (46-116) Troponin I Quantitative < 0.017 ng/mL (0.000-0.055) Total Protein 7.2 g/dL (6.4-8.2) Albumin 2.1 g/dL (3.4-5.0) Albumin/Globulin Ratio 0.4 (1.0-1.7) Lipase 98 U/L (73-393) Lactic Acid Level 2.1 mmol/L (0.4-2.0) 2.0 mmol/L (0.4-2.0) Urine Collection Type Unknown Urine Color [place] Urine Clarity Clear Urine pH 6.0 Urine Specific [place] 1.010 Urine Protein 30 mg/dL (NEG-TRACE) Urine Glucose (UA) Negative mg/dL (NEG) Urine Ketones (Stick) Negative mg/dL (NEG) Urine Blood Large (NEG) Urine Nitrite Negative (NEG) Urine Bilirubin Small (NEG) Urine Urobilinogen Dipstick 2.0 mg/dL (0.2 mg/dL) Urine Leukocyte Esterase Large (NEG) Urine RBC 20-40 /HPF (0-2) Urine WBC Tntc /HPF (0-4) Urine Squamous Epithelial Cells Mod /LPF Urine Bacteria Few /HPF (0-FEW) Urine Opiates Screen Neg (NEG) Urine Methadone Screen Neg (NEG) Urine Barbiturates Neg (NEG) Urine Phencyclidine Screen Neg (NEG) Urine Amphetamine/Methamphetamine Neg (NEG) Urine Benzodiazepines Screen Neg (NEG) Urine Cocaine Screen Neg (NEG) Urine Cannabinoids Screen Neg (NEG) Urine Ethyl Alcohol Neg (NEG) Test 08/22/19 05:35 08/22/19 08:20 08/22/19 11:23 08/22/19 16:55 White Blood Count 8.8 x10^3/uL (4.0-11.0) Red Blood Count 4.06 x10^6/uL (3.50-5.40) Hemoglobin 11.9 g/dL (12.0-15.5) Hematocrit 33.6 % (36.0-47.0) Mean Corpuscular Volume 83 fL (79-100) Mean Corpuscular Hemoglobin 29 pg (25-35) Mean Corpuscular Hemoglobin Concent 36 g/dL (31-37) Red Cell Distribution Width 12.9 % (11.5-14.5) Platelet Count 183 x10^3/uL (140-400) Neutrophils (%) (Auto) 81 % (31-73) Lymphocytes (%) (Auto) 13 % (24-48) Monocytes (%) (Auto) 4 % (0-9) Eosinophils (%) (Auto) 1 % (0-3) Basophils (%) (Auto) 0 % (0-3) Neutrophils # (Auto) 7.1 x10^3/uL (1.8-7.7) Lymphocytes # (Auto) 1.2 x10^3/uL (1.0-4.8) Monocytes # (Auto) 0.4 x10^3/uL (0.0-1.1) Eosinophils # (Auto) 0.1 x10^3/uL (0.0-0.7) Basophils # (Auto) 0.0 x10^3/uL (0.0-0.2) Sodium Level 134 mmol/L (136-145) Potassium Level 3.2 mmol/L (3.5-5.1) Chloride Level 98 mmol/L (98-107) Carbon Dioxide Level 25 mmol/L (21-32) Anion Gap 11 (6-14) Blood Urea Nitrogen 42 mg/dL (7-20) Creatinine 2.0 mg/dL (0.6-1.0) Estimated GFR (Cockcroft-Gault) 24.7 BUN/Creatinine Ratio 21 (6-20) Glucose Level 95 mg/dL (70-99) Calcium Level 8.1 mg/dL (8.5-10.1) Total Bilirubin 4.9 mg/dL (0.2-1.0) Aspartate Amino Transf (AST/SGOT) 66 U/L (15-37) Alanine Aminotransferase (ALT/SGPT) 45 U/L (14-59) Alkaline Phosphatase 272 U/L (46-116) Total Protein 6.9 g/dL (6.4-8.2) Albumin 1.8 g/dL (3.4-5.0) Albumin/Globulin Ratio 0.4 (1.0-1.7) Glucose (Fingerstick) 98 mg/dL (70-99) 170 mg/dL (70-99) 146 mg/dL (70-99) Test 08/23/19 04:15 White Blood Count 7.4 x10^3/uL (4.0-11.0) Red Blood Count 3.96 x10^6/uL (3.50-5.40) Hemoglobin 11.6 g/dL (12.0-15.5) Hematocrit 32.9 % (36.0-47.0) Mean Corpuscular Volume 83 fL (79-100) Mean Corpuscular Hemoglobin 29 pg (25-35) Mean Corpuscular Hemoglobin Concent 35 g/dL (31-37) Red Cell Distribution Width 13.2 % (11.5-14.5) Platelet Count 137 x10^3/uL (140-400) Neutrophils (%) (Auto) 72 % (31-73) Lymphocytes (%) (Auto) 19 % (24-48) Monocytes (%) (Auto) 7 % (0-9) Eosinophils (%) (Auto) 1 % (0-3) Basophils (%) (Auto) 0 % (0-3) Neutrophils # (Auto) 5.3 x10^3/uL (1.8-7.7) Lymphocytes # (Auto) 1.4 x10^3/uL (1.0-4.8) Monocytes # (Auto) 0.5 x10^3/uL (0.0-1.1) Eosinophils # (Auto) 0.1 x10^3/uL (0.0-0.7) Basophils # (Auto) 0.0 x10^3/uL (0.0-0.2) Sodium Level 136 mmol/L (136-145) Potassium Level 3.8 mmol/L (3.5-5.1) Chloride Level 102 mmol/L (98-107) Carbon Dioxide Level 25 mmol/L (21-32) Anion Gap 9 (6-14) Blood Urea Nitrogen 32 mg/dL (7-20) Creatinine 1.4 mg/dL (0.6-1.0) Estimated GFR (Cockcroft-Gault) 37.3 BUN/Creatinine Ratio 23 (6-20) Glucose Level 184 mg/dL (70-99) Calcium Level 8.5 mg/dL (8.5-10.1) Phosphorus Level 3.1 mg/dL (2.6-4.7) Magnesium Level 1.7 mg/dL (1.8-2.4) Total Bilirubin 7.9 mg/dL (0.2-1.0) Aspartate Amino Transf (AST/SGOT) 89 U/L (15-37) Alanine Aminotransferase (ALT/SGPT) 53 U/L (14-59) Alkaline Phosphatase 384 U/L (46-116) Total Protein 6.7 g/dL (6.4-8.2) Albumin 1.8 g/dL (3.4-5.0) Albumin/Globulin Ratio 0.4 (1.0-1.7) Laboratory Tests Test 08/22/19 11:23 08/22/19 16:55 08/23/19 04:15 Glucose (Fingerstick) 170 mg/dL (70-99) 146 mg/dL (70-99) White Blood Count 7.4 x10^3/uL (4.0-11.0) Red Blood Count 3.96 x10^6/uL (3.50-5.40) Hemoglobin 11.6 g/dL (12.0-15.5) Hematocrit 32.9 % (36.0-47.0) Mean Corpuscular Volume 83 fL (79-100) Mean Corpuscular Hemoglobin 29 pg (25-35) Mean Corpuscular Hemoglobin Concent 35 g/dL (31-37) Red Cell Distribution Width 13.2 % (11.5-14.5) Platelet Count 137 x10^3/uL (140-400) Neutrophils (%) (Auto) 72 % (31-73) Lymphocytes (%) (Auto) 19 % (24-48) Monocytes (%) (Auto) 7 % (0-9) Eosinophils (%) (Auto) 1 % (0-3) Basophils (%) (Auto) 0 % (0-3) Neutrophils # (Auto) 5.3 x10^3/uL (1.8-7.7) Lymphocytes # (Auto) 1.4 x10^3/uL (1.0-4.8) Monocytes # (Auto) 0.5 x10^3/uL (0.0-1.1) Eosinophils # (Auto) 0.1 x10^3/uL (0.0-0.7) Basophils # (Auto) 0.0 x10^3/uL (0.0-0.2) Sodium Level 136 mmol/L (136-145) Potassium Level 3.8 mmol/L (3.5-5.1) Chloride Level 102 mmol/L (98-107) Carbon Dioxide Level 25 mmol/L (21-32) Anion Gap 9 (6-14) Blood Urea Nitrogen 32 mg/dL (7-20) Creatinine 1.4 mg/dL (0.6-1.0) Estimated GFR (Cockcroft-Gault) 37.3 BUN/Creatinine Ratio 23 (6-20) Glucose Level 184 mg/dL (70-99) Calcium Level 8.5 mg/dL (8.5-10.1) Phosphorus Level 3.1 mg/dL (2.6-4.7) Magnesium Level 1.7 mg/dL (1.8-2.4) Total Bilirubin 7.9 mg/dL (0.2-1.0) Aspartate Amino Transf (AST/SGOT) 89 U/L (15-37) Alanine Aminotransferase (ALT/SGPT) 53 U/L (14-59) Alkaline Phosphatase 384 U/L (46-116) Total Protein 6.7 g/dL (6.4-8.2) Albumin 1.8 g/dL (3.4-5.0) Albumin/Globulin Ratio 0.4 (1.0-1.7) Microbiology 08/21/19 Blood Culture - Preliminary, Resulted NO GROWTH AFTER 1 DAY Medications Current Medications Sodium Chloride 1,000 ml @ 1,000 mls/hr Q1H IV Last administered on 08/21/19at 11:52; Start 08/21/19 at 11:38; Stop 08/21/19 at 12:37; Status DC Ondansetron HCl (Zofran) 4 mg 1X ONCE IV Last administered on 08/21/19at 11:51; Start 08/21/19 at 11:45; Stop 08/21/19 at 11:46; Status DC Famotidine (Pepcid Vial) 20 mg 1X ONCE IVP Last administered on 08/21/19at 11:51; Start 08/21/19 at 11:45; Stop 08/21/19 at 11:46; Status DC Ondansetron HCl (Zofran) 4 mg PRN Q8HRS PRN IV NAUSEA/VOMITING; Start 08/21/19 at 14:00; Stop 08/22/19 at 13:59; Status DC Fentanyl Citrate (Fentanyl 2ml Vial) 50 mcg PRN Q1HR PRN IV PAIN; Start 08/21/19 at 14:00; Stop 08/22/19 at 13:59; Status DC Sodium Chloride 1,000 ml @ 100 mls/hr Q10H IV Last administered on 08/21/19at 14:05; Start 08/21/19 at 13:55; Stop 08/22/19 at 13:54; Status DC Acetaminophen (Tylenol) 650 mg PRN Q4HRS PRN PO FEVER; Start 08/21/19 at 14:00; Stop 08/22/19 at 13:59; Status DC Ciprofloxacin/ Dextrose 200 ml @ 200 mls/hr Q24H IV Last administered on 08/21/19at 15:21; Start 08/21/19 at 15:00; Stop 08/22/19 at 11:06; Status DC Lactobacillus Rhamnosus (Culturelle) 1 cap BID PO Last administered on 08/23/19at 09:18; Start 08/21/19 at 21:00 Ciprofloxacin/ Dextrose 100 ml @ 100 mls/hr Q12HR IV ; Start 08/21/19 at 21:00; Stop 08/21/19 at 19:34; Status DC Piperacillin Sod/ Tazobactam Sod 3.375 gm/Sodium Chloride 50 ml @ 100 mls/hr Q6HRS IV ; Start 08/22/19 at 00:00; Status UNV Sodium Chloride (Normal Saline Flush) 3 ml QSHIFT PRN IV AFTER MEDS AND BLOOD DRAWS; Start 08/21/19 at 19:45 Sodium Chloride 1,000 ml @ 100 mls/hr Q10H IV Last administered on 08/23/19at 04:35; Start 08/21/19 at 19:32 Ondansetron HCl (Zofran) 4 mg PRN Q4HRS PRN IV NAUSEA/VOMITING Last administered on 08/22/19at 17:45; Start 08/21/19 at 19:45 Acetaminophen (Tylenol) 650 mg PRN Q4HRS PRN PO TEMP OVER 100.4F OR MILD PAIN; Start 08/21/19 at 19:45 Acetaminophen (Tylenol Supp) 650 mg PRN Q4HRS PRN NE TEMP OVER 100.4F OR MILD PAIN; Start 08/21/19 at 19:45 Clonidine HCl (Catapres) 0.1 mg PRN Q6HRS PRN PO SBP>160 OR DBP>90; Start 08/21/19 at 19:45 Docusate Sodium (Colace) 100 mg PRN BID PRN PO HARD STOOLS; Start 08/21/19 at 19:45 Albuterol Sulfate (Ventolin Neb Soln) 2.5 mg PRN Q4HRS PRN NEB SHORTNESS OF BREATH; Start 08/21/19 at 19:45 Guaifenesin (Robitussin) 200 mg PRN Q4HRS PRN PO COUGH; Start 08/21/19 at 19:45 Lorazepam (Ativan) 0.5 mg PRN Q4HRS PRN PO ANXIETY / AGITATION; Start 08/21/19 at 19:45 Enoxaparin Sodium (Lovenox 30mg Syringe) 30 mg DAILY SQ Last administered on 08/23/19at 09:18; Start 08/22/19 at 09:00 Piperacillin Sod/ Tazobactam Sod 2.25 gm/Sodium Chloride 50 ml @ 100 mls/hr Q8HRS IV Last administered on 08/23/19at 05:51; Start 08/21/19 at 22:00 Potassium Chloride (Klor-Con) 40 meq 1X ONCE PO Last administered on 08/22/19at 14:12; Start 08/22/19 at 13:00; Stop 08/22/19 at 13:01; Status DC Active Scripts Active Diclofenac Potassium 50 Mg Tablet 1 Tab PO BID 3 Days Keflex (Cephalexin) 500 Mg Capsule 2 Cap PO Q12HR 5 Days Vitals/I & O Vital Sign - Last 24 Hours 08/22/19 08/22/19 08/22/19 08/22/19 11:00 15:00 19:00 20:00 Temp 97.6 97.7 97.6 97.6 97.7 97.6 Pulse 92 88 89 Resp 18 18 18 B/P (MAP) 142/63 (89) 160/65 (96) 139/86 (103) Pulse Ox 96 97 97 O2 Delivery Room Air Room Air Room Air Room Air 08/22/19 08/23/19 08/23/19 23:00 03:00 07:00 Temp 98.0 97.6 97.7 98.0 97.6 97.7 Pulse 88 89 87 Resp 18 20 17 B/P (MAP) 173/78 (109) 178/79 (112) 175/88 (117) Pulse Ox 96 94 96 O2 Delivery Room Air Room Air Room Air Intake and Output 08/22/19 08/23/19 08/23/19 16:59 00:59 08:59 Intake Total 2325 ml 400 ml 500 ml Balance 2325 ml 400 ml 500 ml NINI CASANOVA MD Aug 23, 2019 10:21
[2019-08-23 10:54] VITALS: BP 160/72
--- NOTE | 2019-08-23 13:42 | NUR ---
SW following for discharge planning. Chart reviewed, discussed with RN. PT/OT recommending home. RN advised no SW needs at this time. Day two of blood cultures. SW will continue to follow for any discharge planning needs.
[2019-08-23 15:00] VITALS: BP 192/102
--- NOTE | 2019-08-23 16:24 | RAD ---
Indication: Hyperbilirubinemia TECHNIQUE: Grayscale, color Doppler and spectral waveform is of the abdomen obtained. COMPARISON:None FINDINGS: Pancreas is not visualized due to overlying bowel gas. No aortic aneurysm. IVC is within normal limits. Liver is mildly enlarged measuring 19 cm with diffuse increased echogenicity. Main portal vein is patent. Status post cholecystectomy. CBD measures 7 mm in diameter and is within normal limits. Right kidney measures 12 cm in length without hydronephrosis. Spleen measures 10.6 cm in length and is normal in size. Left kidney measures 11.5 cm in length without hydronephrosis. IMPRESSION: Mild hepatomegaly with Hepatic steatosis. Electronically signed by: Michael Watson DO (08/23/2019 4:21 PM) [id number]
[2019-08-23] MEDS: amLODIPine BESYLATE 5 MG TABLET PO SCH (17:21)
[2019-08-23] MEDS: METOPROLOL SUCC 24HR ER 25 MG TAB.ER.24H. PO SCH (17:21)
[2019-08-23 19:00] VITALS: BP 141/66
[2019-08-23 23:00] VITALS: BP 150/68
[2019-08-24 03:00] VITALS: BP 150/68
[2019-08-24 04:09] LABS: BASO % 0 % (0-3); EOS # 0.2 x10^3/uL (0.0-0.7); EOS % 3 % (0-3); HEMATOCRIT 34.8 % (36.0-47.0); LYMPH # 1.6 x10^3/uL (1.0-4.8); LYMPH % 22 % (24-48); MEAN CORPUSCULAR HEMOGLOBIN 29 pg (25-35); MEAN CORPUSCULAR HGB CONC 35 g/dL (31-37); MEAN CORPUSCULAR VOLUME 83 fL (79-100); MONO # 0.5 x10^3/uL (0.0-1.1); MONO % 6 % (0-9); NEUT # 5.2 x10^3/uL (1.8-7.7); NEUT % 69 % (31-73); PLATELET COUNT 118 x10^3/uL (140-400); RED CELL DISTRIBUTION WIDTH 13.1 % (11.5-14.5); WHITE BLOOD COUNT 7.4 x10^3/uL (4.0-11.0)
[2019-08-24 04:27] LABS: CALCIUM 8.5 mg/dL (8.5-10.1); CREATININE 1.1 mg/dL (0.6-1.0); GFR 49.2; POTASSIUM 3.3 mmol/L (3.5-5.1)
[2019-08-24] MEDS: PIPERACILLIN/TAZOBACTAM 2.25 GM in IV NORMAL SALINE 50ML 50 ML IV SCH ×2 (05:25→14:24)
[2019-08-24 07:00] VITALS: BP 161/78
--- NOTE | 2019-08-24 09:19 | PDOC ---
Infectious Disease Note Subjective: Subjective pt says feels better denies any n/ v/d/f/c Vital Signs: Vital Signs Vital Signs Date Time Temp Pulse Resp B/P (MAP) Pulse Ox O2 Delivery O2 Flow Rate FiO2 08/24/19 07:00 97.5 75 16 161/78 (105) 98 Room Air 97.5 Physical Exam: PHYSICAL EXAM GENERAL: Alert, oriented x 3, female, weak appearing, cooperative, pleasant. HEENT: Normocephalic, atraumatic, anicteric. No thrush. NECK: Supple, no JVD. LUNGS: Clear bilaterally. HEART: S1, S2. No gallops or murmurs. ABDOMEN: Soft, nontender, nondistended, no rebound, no guarding. BACK: Reveals normal curvature. No CVA tenderness. EXTREMITIES: No edema, no cyanosis. DERMATOLOGIC: Warm and dry. No generalized rash. NEUROLOGIC: Alert and oriented x 3, grossly nonfocal. PSYCHIATRIC: Cooperative, appropriate mood and affect. Medications: Inpatient Meds: Current Medications Medications (Trade) Dose Ordered Sig/Bere Start Time Stop Time Status Last Admin Dose Admin Acetaminophen (Tylenol Supp) 650 mg PRN Q4HRS PRN 08/21/19 19:45 Acetaminophen (Tylenol) 650 mg PRN Q4HRS PRN 08/21/19 19:45 Albuterol Sulfate (Ventolin Neb Soln) 2.5 mg PRN Q4HRS PRN 08/21/19 19:45 Amlodipine Besylate (Norvasc) 5 mg DAILY 08/23/19 17:00 08/23/19 17:21 Ciprofloxacin/ Dextrose 100 ml @ 100 mls/hr Q12HR 08/21/19 21:00 08/21/19 19:34 DC Clonidine HCl (Catapres) 0.1 mg PRN Q6HRS PRN 08/21/19 19:45 08/23/19 13:57 Docusate Sodium (Colace) 100 mg PRN BID PRN 08/21/19 19:45 Enoxaparin Sodium (Lovenox 30mg Syringe) 30 mg DAILY 08/22/19 09:00 08/23/19 09:18 Famotidine (Pepcid Vial) 20 mg 1X ONCE 08/21/19 11:45 08/21/19 11:46 DC 08/21/19 11:51 Fentanyl Citrate (Fentanyl 2ml Vial) 50 mcg PRN Q1HR PRN 08/21/19 14:00 08/22/19 13:59 DC Guaifenesin (Robitussin) 200 mg PRN Q4HRS PRN 08/21/19 19:45 Lactobacillus Rhamnosus (Culturelle) 1 cap BID 08/21/19 21:00 08/23/19 23:05 Lorazepam (Ativan) 0.5 mg PRN Q4HRS PRN 08/21/19 19:45 08/23/19 23:05 Metoprolol Succinate (Toprol Xl) 25 mg DAILY 08/23/19 16:15 08/23/19 17:21 Ondansetron HCl (Zofran) 4 mg PRN Q4HRS PRN 08/21/19 19:45 08/22/19 17:45 Piperacillin Sod/ Tazobactam Sod 2.25 gm/Sodium Chloride 50 ml @ 100 mls/hr Q8HRS 08/21/19 22:00 08/24/19 05:25 Piperacillin Sod/ Tazobactam Sod 3.375 gm/Sodium Chloride 50 ml @ 100 mls/hr Q6HRS 08/22/19 00:00 UNV Potassium Chloride (Klor-Con) 40 meq 1X ONCE 08/22/19 13:00 08/22/19 13:01 DC 08/22/19 14:12 Sodium Chloride 1,000 ml @ 100 mls/hr Q10H 08/21/19 19:32 08/23/19 23:07 Sodium Chloride (Normal Saline Flush) 3 ml QSHIFT PRN 08/21/19 19:45 Labs: Lab Laboratory Tests Test 08/23/19 20:55 08/24/19 02:53 08/24/19 02:55 Glucose (Fingerstick) 170 mg/dL (70-99) Sodium Level 134 mmol/L (136-145) Potassium Level 3.3 mmol/L (3.5-5.1) Chloride Level 100 mmol/L (98-107) Carbon Dioxide Level 28 mmol/L (21-32) Anion Gap 6 (6-14) Blood Urea Nitrogen 21 mg/dL (7-20) Creatinine 1.1 mg/dL (0.6-1.0) Estimated GFR (Cockcroft-Gault) 49.2 Glucose Level 155 mg/dL (70-99) Calcium Level 8.5 mg/dL (8.5-10.1) White Blood Count 7.4 x10^3/uL (4.0-11.0) Red Blood Count 4.20 x10^6/uL (3.50-5.40) Hemoglobin 12.0 g/dL (12.0-15.5) Hematocrit 34.8 % (36.0-47.0) Mean Corpuscular Volume 83 fL (79-100) Mean Corpuscular Hemoglobin 29 pg (25-35) Mean Corpuscular Hemoglobin Concent 35 g/dL (31-37) Red Cell Distribution Width 13.1 % (11.5-14.5) Platelet Count 118 x10^3/uL (140-400) Neutrophils (%) (Auto) 69 % (31-73) Lymphocytes (%) (Auto) 22 % (24-48) Monocytes (%) (Auto) 6 % (0-9) Eosinophils (%) (Auto) 3 % (0-3) Basophils (%) (Auto) 0 % (0-3) Neutrophils # (Auto) 5.2 x10^3/uL (1.8-7.7) Lymphocytes # (Auto) 1.6 x10^3/uL (1.0-4.8) Monocytes # (Auto) 0.5 x10^3/uL (0.0-1.1) Eosinophils # (Auto) 0.2 x10^3/uL (0.0-0.7) Basophils # (Auto) 0.0 x10^3/uL (0.0-0.2) Objective: Assessment: 1. Sepsis. improved 2. Leukocytosis and lactic acidosis.improved 3. Urinary tract infection, failed outpatient Keflex.UC neg 4. Acute kidney injury.improving 5. Abnormal liver function tests.Hyperbilirubinemia 6. Nausea and vomiting prior to admission. 7. Diarrhea, now resolved. 8. Orthostasis, resolving. 9. Diabetes mellitus. 10.Thrombocytopenia Plan: Plan of Care Consult GI cont zosyn cont supportive care will deescalate tomorrow depending on cult report LILIA GRUBER MD Aug 24, 2019 09:19
[2019-08-24] MEDS: LACTOBACILLUS RHAMNOSUS GG 1 CAPSULE. PO SCH (09:36)
[2019-08-24] MEDS: amLODIPine BESYLATE 5 MG TABLET PO SCH (09:37)
[2019-08-24] MEDS: METOPROLOL SUCC 24HR ER 25 MG TAB.ER.24H. PO SCH (09:37)
[2019-08-24] MEDS: ENOXAPARIN 30 MG/0.3 ML SYRINGE. SQ SCH (09:39)
--- NOTE | 2019-08-24 10:17 | PDOC ---
SUBJECTIVE ROS States feeling better OBJECTIVE Vital Signs Vital Signs Date Time Temp Pulse Resp B/P (MAP) Pulse Ox O2 Delivery O2 Flow Rate FiO2 08/24/19 09:37 75 161/78 08/24/19 07:00 97.5 16 98 Room Air 97.5 I & 0 Intake and Output 08/24/19 07:00 Intake Total 2140 ml Balance 2140 ml Intake Oral 2140 ml # Voids 5 # Bowel Movements 1 PHYSICAL EXAM Physical Exam GENERAL:NAD HEENT: anicteric.OM moist NECK: Supple, no JVD. LUNGS: Clear bilaterally. HEART: S1, S2. No gallops or murmurs. ABDOMEN: Soft, nontender, EXTREMITIES: No edema, no cyanosis. SKIN No generalized rash. NEUROLOGIC: Alert and oriented x 3, grossly nonfocal. PSYCHIATRIC: Cooperative, appropriate mood and affect. No mercedes, No SP or CVA tenderness DIAGNOSIS/ASSESSMENT Assessment & Plan LUCIANA- Pre-renal 2/2 Hypotension due to sepsis/UTI , some use of NSAID Cr peaked at 2.5----> 1.1 Improving ,CT scan Unremarkable Kidneys and bladder Supportive care, I/O, Avoid nephrotoxins, Monitor HypoNa - mildly low HypoKalemia, replace as needed Hypo Mg- replace as needed Sepsis/ Leukocytosis and lactic acidosis. Urinary tract infection - On Abx per ID Abnormal liver function tests. Diabetes mellitus diet controlled per pt HTN- hypotensive intermittently DC per primary COMMENT/RELEVANT DATA Meds Current Medications Medications (Trade) Dose Ordered Sig/Bere Start Time Stop Time Status Last Admin Dose Admin Acetaminophen (Tylenol Supp) 650 mg PRN Q4HRS PRN 08/21/19 19:45 Acetaminophen (Tylenol) 650 mg PRN Q4HRS PRN 08/21/19 19:45 Albuterol Sulfate (Ventolin Neb Soln) 2.5 mg PRN Q4HRS PRN 08/21/19 19:45 Amlodipine Besylate (Norvasc) 5 mg DAILY 08/23/19 17:00 08/24/19 09:37 5 MG Ciprofloxacin/ Dextrose 100 ml @ 100 mls/hr Q12HR 08/21/19 21:00 08/21/19 19:34 DC Clonidine HCl (Catapres) 0.1 mg PRN Q6HRS PRN 08/21/19 19:45 08/23/19 13:57 0.1 MG Docusate Sodium (Colace) 100 mg PRN BID PRN 08/21/19 19:45 Enoxaparin Sodium (Lovenox 30mg Syringe) 30 mg DAILY 08/22/19 09:00 08/24/19 09:39 30 MG Famotidine (Pepcid Vial) 20 mg 1X ONCE 08/21/19 11:45 08/21/19 11:46 DC 08/21/19 11:51 20 MG Fentanyl Citrate (Fentanyl 2ml Vial) 50 mcg PRN Q1HR PRN 08/21/19 14:00 08/22/19 13:59 DC Guaifenesin (Robitussin) 200 mg PRN Q4HRS PRN 08/21/19 19:45 Lactobacillus Rhamnosus (Culturelle) 1 cap BID 08/21/19 21:00 08/24/19 09:36 1 CAP Lorazepam (Ativan) 0.5 mg PRN Q4HRS PRN 08/21/19 19:45 08/23/19 23:05 0.5 MG Metoprolol Succinate (Toprol Xl) 25 mg DAILY 08/23/19 16:15 08/24/19 09:37 25 MG Ondansetron HCl (Zofran) 4 mg PRN Q4HRS PRN 08/21/19 19:45 08/22/19 17:45 4 MG Piperacillin Sod/ Tazobactam Sod 2.25 gm/Sodium Chloride 50 ml @ 100 mls/hr Q8HRS 08/21/19 22:00 08/24/19 05:25 100 MLS/HR Piperacillin Sod/ Tazobactam Sod 3.375 gm/Sodium Chloride 50 ml @ 100 mls/hr Q6HRS 08/22/19 00:00 UNV Potassium Chloride (Klor-Con) 40 meq 1X ONCE 08/22/19 13:00 08/22/19 13:01 DC 08/22/19 14:12 40 MEQ Sodium Chloride 1,000 ml @ 100 mls/hr Q10H 08/21/19 19:32 08/23/19 23:07 100 MLS/HR Sodium Chloride (Normal Saline Flush) 3 ml QSHIFT PRN 08/21/19 19:45 Lab Laboratory Tests Test 08/23/19 20:55 08/24/19 02:53 08/24/19 02:55 Glucose (Fingerstick) 170 mg/dL (70-99) Sodium Level 134 mmol/L (136-145) Potassium Level 3.3 mmol/L (3.5-5.1) Chloride Level 100 mmol/L (98-107) Carbon Dioxide Level 28 mmol/L (21-32) Anion Gap 6 (6-14) Blood Urea Nitrogen 21 mg/dL (7-20) Creatinine 1.1 mg/dL (0.6-1.0) Estimated GFR (Cockcroft-Gault) 49.2 Glucose Level 155 mg/dL (70-99) Calcium Level 8.5 mg/dL (8.5-10.1) White Blood Count 7.4 x10^3/uL (4.0-11.0) Red Blood Count 4.20 x10^6/uL (3.50-5.40) Hemoglobin 12.0 g/dL (12.0-15.5) Hematocrit 34.8 % (36.0-47.0) Mean Corpuscular Volume 83 fL (79-100) Mean Corpuscular Hemoglobin 29 pg (25-35) Mean Corpuscular Hemoglobin Concent 35 g/dL (31-37) Red Cell Distribution Width 13.1 % (11.5-14.5) Platelet Count 118 x10^3/uL (140-400) Neutrophils (%) (Auto) 69 % (31-73) Lymphocytes (%) (Auto) 22 % (24-48) Monocytes (%) (Auto) 6 % (0-9) Eosinophils (%) (Auto) 3 % (0-3) Basophils (%) (Auto) 0 % (0-3) Neutrophils # (Auto) 5.2 x10^3/uL (1.8-7.7) Lymphocytes # (Auto) 1.6 x10^3/uL (1.0-4.8) Monocytes # (Auto) 0.5 x10^3/uL (0.0-1.1) Eosinophils # (Auto) 0.2 x10^3/uL (0.0-0.7) Basophils # (Auto) 0.0 x10^3/uL (0.0-0.2) Results All relevant outside records, renal labs, imaging studies, telemetry/EKG's were reviewed. UMER THORNTON MD Aug 24, 2019 10:17
[2019-08-24 11:00] VITALS: BP_SYST 109; BP_SYST 135; BP_SYST 136; BP_DIAS 63; BP_DIAS 64; BP_DIAS 72
--- NOTE | 2019-08-24 11:19 | PDOC ---
PROGRESS NOTES Chief Complaint Chief Complaint IMPRESSION 1. sepsis and Acute pyelonephritis, UTI 2. Acute renal failure 3. INTRACTABLE NAUSEA AND VOMITING 4. DEHYDRATION 5. DIABETES 6. .HTN, suboptimal control; 7. severe protein malnutrition, POA 8. HYPOKALEMIA 08/23 POOR APPETITE, CONT IV ZOSYN ADD NORVASC 5 MG PO DAILY 08/24 START LANTUS 8 UNITS SQ Q HS History of Present Illness History of Present Illness impression renal and ID following blood cx cont IV abx replace potassium, hypokalemia Vitals Vitals Vital Signs Date Time Temp Pulse Resp B/P (MAP) Pulse Ox O2 Delivery O2 Flow Rate FiO2 08/24/19 09:37 75 161/78 08/24/19 07:00 97.5 16 98 Room Air 97.5 Physical Exam Physical Exam GENERAL: Alert, oriented x 3, female, weak appearing, cooperative, pleasant. HEENT: Normocephalic, atraumatic, anicteric. No thrush. NECK: Supple, no JVD. LUNGS: Clear bilaterally. HEART: S1, S2. No gallops or murmurs. ABDOMEN: Soft, nontender, nondistended, no rebound, no guarding. BACK: Reveals normal curvature. No CVA tenderness. EXTREMITIES: No edema, no cyanosis. DERMATOLOGIC: Warm and dry. No generalized rash. NEUROLOGIC: Alert and oriented x 3, grossly nonfocal. PSYCHIATRIC: Cooperative, appropriate mood and affect. General: Alert, Oriented X3, Cooperative, No acute distress Heart: Regular rate, Normal S1 Lungs: Clear Abdomen: Normal bowel sounds, Soft Extremities: No cyanosis Skin: No rashes Labs LABS STATUS: ADM IN TLOC: SPEC #: [id number] CARMELA: 08/21/19 STATUS: COMP REQ #: [id number] RECD: 08/21/[address]: BAFUS,MERLE M EEG TECHNICIAN SOURCE: VOID ENTR: 08/21/191428 [facility] DR: NINI CASANOVA MD [facility]: BONILLA HUGHES MD NO PCP ORDERED: URINE CULTURE Procedure Result --- --------- URINE CULTURE Final Final report URINE CULTURE RES 1 Final Comment Culture shows less than 10,000 colony forming units of bacteria per milliliter of urine. This colony count is not generally considered to be clinically significant. Performed at: [facility] [address], [place], [place] [id number] [employer] Teacher: VIKAS Washington MD, Phone: [phone] Laboratory Tests Test 08/23/19 20:55 08/24/19 02:53 08/24/19 02:55 Glucose (Fingerstick) 170 mg/dL (70-99) Sodium Level 134 mmol/L (136-145) Potassium Level 3.3 mmol/L (3.5-5.1) Chloride Level 100 mmol/L (98-107) Carbon Dioxide Level 28 mmol/L (21-32) Anion Gap 6 (6-14) Blood Urea Nitrogen 21 mg/dL (7-20) Creatinine 1.1 mg/dL (0.6-1.0) Estimated GFR (Cockcroft-Gault) 49.2 Glucose Level 155 mg/dL (70-99) Calcium Level 8.5 mg/dL (8.5-10.1) White Blood Count 7.4 x10^3/uL (4.0-11.0) Red Blood Count 4.20 x10^6/uL (3.50-5.40) Hemoglobin 12.0 g/dL (12.0-15.5) Hematocrit 34.8 % (36.0-47.0) Mean Corpuscular Volume 83 fL (79-100) Mean Corpuscular Hemoglobin 29 pg (25-35) Mean Corpuscular Hemoglobin Concent 35 g/dL (31-37) Red Cell Distribution Width 13.1 % (11.5-14.5) Platelet Count 118 x10^3/uL (140-400) Neutrophils (%) (Auto) 69 % (31-73) Lymphocytes (%) (Auto) 22 % (24-48) Monocytes (%) (Auto) 6 % (0-9) Eosinophils (%) (Auto) 3 % (0-3) Basophils (%) (Auto) 0 % (0-3) Neutrophils # (Auto) 5.2 x10^3/uL (1.8-7.7) Lymphocytes # (Auto) 1.6 x10^3/uL (1.0-4.8) Monocytes # (Auto) 0.5 x10^3/uL (0.0-1.1) Eosinophils # (Auto) 0.2 x10^3/uL (0.0-0.7) Basophils # (Auto) 0.0 x10^3/uL (0.0-0.2) Assessment and Plan Assessmemt and Plan Problems Medical Problems: (1) Acute kidney injury Status: Acute (2) Orthostatic hypotension Status: Acute Comment Review of Relevant I have reviewed the following items virgie (where applicable) has been applied. Labs Laboratory Tests Test 08/22/19 11:23 08/22/19 16:55 08/23/19 04:15 08/23/19 20:55 Glucose (Fingerstick) 170 mg/dL (70-99) 146 mg/dL (70-99) 170 mg/dL (70-99) White Blood Count 7.4 x10^3/uL (4.0-11.0) Red Blood Count 3.96 x10^6/uL (3.50-5.40) Hemoglobin 11.6 g/dL (12.0-15.5) Hematocrit 32.9 % (36.0-47.0) Mean Corpuscular Volume 83 fL (79-100) Mean Corpuscular Hemoglobin 29 pg (25-35) Mean Corpuscular Hemoglobin Concent 35 g/dL (31-37) Red Cell Distribution Width 13.2 % (11.5-14.5) Platelet Count 137 x10^3/uL (140-400) Neutrophils (%) (Auto) 72 % (31-73) Lymphocytes (%) (Auto) 19 % (24-48) Monocytes (%) (Auto) 7 % (0-9) Eosinophils (%) (Auto) 1 % (0-3) Basophils (%) (Auto) 0 % (0-3) Neutrophils # (Auto) 5.3 x10^3/uL (1.8-7.7) Lymphocytes # (Auto) 1.4 x10^3/uL (1.0-4.8) Monocytes # (Auto) 0.5 x10^3/uL (0.0-1.1) Eosinophils # (Auto) 0.1 x10^3/uL (0.0-0.7) Basophils # (Auto) 0.0 x10^3/uL (0.0-0.2) Sodium Level 136 mmol/L (136-145) Potassium Level 3.8 mmol/L (3.5-5.1) Chloride Level 102 mmol/L (98-107) Carbon Dioxide Level 25 mmol/L (21-32) Anion Gap 9 (6-14) Blood Urea Nitrogen 32 mg/dL (7-20) Creatinine 1.4 mg/dL (0.6-1.0) Estimated GFR (Cockcroft-Gault) 37.3 BUN/Creatinine Ratio 23 (6-20) Glucose Level 184 mg/dL (70-99) Calcium Level 8.5 mg/dL (8.5-10.1) Phosphorus Level 3.1 mg/dL (2.6-4.7) Magnesium Level 1.7 mg/dL (1.8-2.4) Total Bilirubin 7.9 mg/dL (0.2-1.0) Aspartate Amino Transf (AST/SGOT) 89 U/L (15-37) Alanine Aminotransferase (ALT/SGPT) 53 U/L (14-59) Alkaline Phosphatase 384 U/L (46-116) Total Protein 6.7 g/dL (6.4-8.2) Albumin 1.8 g/dL (3.4-5.0) Albumin/Globulin Ratio 0.4 (1.0-1.7) Test 08/24/19 02:53 08/24/19 02:55 Sodium Level 134 mmol/L (136-145) Potassium Level 3.3 mmol/L (3.5-5.1) Chloride Level 100 mmol/L (98-107) Carbon Dioxide Level 28 mmol/L (21-32) Anion Gap 6 (6-14) Blood Urea Nitrogen 21 mg/dL (7-20) Creatinine 1.1 mg/dL (0.6-1.0) Estimated GFR (Cockcroft-Gault) 49.2 Glucose Level 155 mg/dL (70-99) Calcium Level 8.5 mg/dL (8.5-10.1) White Blood Count 7.4 x10^3/uL (4.0-11.0) Red Blood Count 4.20 x10^6/uL (3.50-5.40) Hemoglobin 12.0 g/dL (12.0-15.5) Hematocrit 34.8 % (36.0-47.0) Mean Corpuscular Volume 83 fL (79-100) Mean Corpuscular Hemoglobin 29 pg (25-35) Mean Corpuscular Hemoglobin Concent 35 g/dL (31-37) Red Cell Distribution Width 13.1 % (11.5-14.5) Platelet Count 118 x10^3/uL (140-400) Neutrophils (%) (Auto) 69 % (31-73) Lymphocytes (%) (Auto) 22 % (24-48) Monocytes (%) (Auto) 6 % (0-9) Eosinophils (%) (Auto) 3 % (0-3) Basophils (%) (Auto) 0 % (0-3) Neutrophils # (Auto) 5.2 x10^3/uL (1.8-7.7) Lymphocytes # (Auto) 1.6 x10^3/uL (1.0-4.8) Monocytes # (Auto) 0.5 x10^3/uL (0.0-1.1) Eosinophils # (Auto) 0.2 x10^3/uL (0.0-0.7) Basophils # (Auto) 0.0 x10^3/uL (0.0-0.2) Laboratory Tests Test 08/23/19 20:55 08/24/19 02:53 08/24/19 02:55 Glucose (Fingerstick) 170 mg/dL (70-99) Sodium Level 134 mmol/L (136-145) Potassium Level 3.3 mmol/L (3.5-5.1) Chloride Level 100 mmol/L (98-107) Carbon Dioxide Level 28 mmol/L (21-32) Anion Gap 6 (6-14) Blood Urea Nitrogen 21 mg/dL (7-20) Creatinine 1.1 mg/dL (0.6-1.0) Estimated GFR (Cockcroft-Gault) 49.2 Glucose Level 155 mg/dL (70-99) Calcium Level 8.5 mg/dL (8.5-10.1) White Blood Count 7.4 x10^3/uL (4.0-11.0) Red Blood Count 4.20 x10^6/uL (3.50-5.40) Hemoglobin 12.0 g/dL (12.0-15.5) Hematocrit 34.8 % (36.0-47.0) Mean Corpuscular Volume 83 fL (79-100) Mean Corpuscular Hemoglobin 29 pg (25-35) Mean Corpuscular Hemoglobin Concent 35 g/dL (31-37) Red Cell Distribution Width 13.1 % (11.5-14.5) Platelet Count 118 x10^3/uL (140-400) Neutrophils (%) (Auto) 69 % (31-73) Lymphocytes (%) (Auto) 22 % (24-48) Monocytes (%) (Auto) 6 % (0-9) Eosinophils (%) (Auto) 3 % (0-3) Basophils (%) (Auto) 0 % (0-3) Neutrophils # (Auto) 5.2 x10^3/uL (1.8-7.7) Lymphocytes # (Auto) 1.6 x10^3/uL (1.0-4.8) Monocytes # (Auto) 0.5 x10^3/uL (0.0-1.1) Eosinophils # (Auto) 0.2 x10^3/uL (0.0-0.7) Basophils # (Auto) 0.0 x10^3/uL (0.0-0.2) Microbiology 08/21/19 Urine Culture - Final, Complete 08/21/19 Urine Culture Result 1 (STEVE) - Final, Complete 08/21/19 Blood Culture - Preliminary, Resulted NO GROWTH AFTER 2 DAYS Medications Current Medications Sodium Chloride 1,000 ml @ 1,000 mls/hr Q1H IV Last administered on 08/21/19at 11:52; Start 08/21/19 at 11:38; Stop 08/21/19 at 12:37; Status DC Ondansetron HCl (Zofran) 4 mg 1X ONCE IV Last administered on 08/21/19at 11:51; Start 08/21/19 at 11:45; Stop 08/21/19 at 11:46; Status DC Famotidine (Pepcid Vial) 20 mg 1X ONCE IVP Last administered on 08/21/19at 11:51; Start 08/21/19 at 11:45; Stop 08/21/19 at 11:46; Status DC Ondansetron HCl (Zofran) 4 mg PRN Q8HRS PRN IV NAUSEA/VOMITING; Start 08/21/19 at 14:00; Stop 08/22/19 at 13:59; Status DC Fentanyl Citrate (Fentanyl 2ml Vial) 50 mcg PRN Q1HR PRN IV PAIN; Start 08/21/19 at 14:00; Stop 08/22/19 at 13:59; Status DC Sodium Chloride 1,000 ml @ 100 mls/hr Q10H IV Last administered on 08/21/19at 14:05; Start 08/21/19 at 13:55; Stop 08/22/19 at 13:54; Status DC Acetaminophen (Tylenol) 650 mg PRN Q4HRS PRN PO FEVER; Start 08/21/19 at 14:00; Stop 08/22/19 at 13:59; Status DC Ciprofloxacin/ Dextrose 200 ml @ 200 mls/hr Q24H IV Last administered on 08/21/19at 15:21; Start 08/21/19 at 15:00; Stop 08/22/19 at 11:06; Status DC Lactobacillus Rhamnosus (Culturelle) 1 cap BID PO Last administered on 08/24/19at 09:36; Start 08/21/19 at 21:00 Ciprofloxacin/ Dextrose 100 ml @ 100 mls/hr Q12HR IV ; Start 08/21/19 at 21:00; Stop 08/21/19 at 19:34; Status DC Piperacillin Sod/ Tazobactam Sod 3.375 gm/Sodium Chloride 50 ml @ 100 mls/hr Q6HRS IV ; Start 08/22/19 at 00:00; Status UNV Sodium Chloride (Normal Saline Flush) 3 ml QSHIFT PRN IV AFTER MEDS AND BLOOD DRAWS; Start 08/21/19 at 19:45 Sodium Chloride 1,000 ml @ 100 mls/hr Q10H IV Last administered on 08/23/19at 23:07; Start 08/21/19 at 19:32 Ondansetron HCl (Zofran) 4 mg PRN Q4HRS PRN IV NAUSEA/VOMITING 1ST CHOICE Last administered on 08/22/19at 17:45; Start 08/21/19 at 19:45 Acetaminophen (Tylenol) 650 mg PRN Q4HRS PRN PO TEMP OVER 100.4F OR MILD PAIN; Start 08/21/19 at 19:45 Acetaminophen (Tylenol Supp) 650 mg PRN Q4HRS PRN MS TEMP OVER 100.4F OR MILD PAIN; Start 08/21/19 at 19:45 Clonidine HCl (Catapres) 0.1 mg PRN Q6HRS PRN PO SBP>160 OR DBP>90 Last administered on 08/23/19at 13:57; Start 08/21/19 at 19:45 Docusate Sodium (Colace) 100 mg PRN BID PRN PO HARD STOOLS 1ST CHOICE; Start 08/21/19 at 19:45 Albuterol Sulfate (Ventolin Neb Soln) 2.5 mg PRN Q4HRS PRN NEB SHORTNESS OF BREATH; Start 08/21/19 at 19:45 Guaifenesin (Robitussin) 200 mg PRN Q4HRS PRN PO COUGH 1ST CHOICE; Start 08/21/19 at 19:45 Lorazepam (Ativan) 0.5 mg PRN Q4HRS PRN PO ANXIETY / AGITATION Last administere d on 08/23/19at 23:05; Start 08/21/19 at 19:45 Enoxaparin Sodium (Lovenox 30mg Syringe) 30 mg DAILY SQ Last administered on 08/24/19at 09:39; Start 08/22/19 at 09:00; Stop 08/24/19 at 11:15; Status DC Piperacillin Sod/ Tazobactam Sod 2.25 gm/Sodium Chloride 50 ml @ 100 mls/hr Q8HRS IV Last administered on 08/24/19at 05:25; Start 08/21/19 at 22:00 Potassium Chloride (Klor-Con) 40 meq 1X ONCE PO Last administered on 08/22/19at 14:12; Start 08/22/19 at 13:00; Stop 08/22/19 at 13:01; Status DC Amlodipine Besylate (Norvasc) 5 mg DAILY PO Last administered on 08/24/19at 09:37; Start 08/23/19 at 17:00 Metoprolol Succinate (Toprol Xl) 25 mg DAILY PO Last administered on 08/24/19at 09:37; Start 08/23/19 at 16:15 Enoxaparin Sodium (Lovenox 40mg Syringe) 40 mg Q24H SQ ; Start 08/24/19 at 11:30 Active Scripts Active Diclofenac Potassium 50 Mg Tablet 1 Tab PO BID 3 Days Keflex (Cephalexin) 500 Mg Capsule 2 Cap PO Q12HR 5 Days Vitals/I & O Vital Sign - Last 24 Hours 08/23/19 08/23/19 08/23/19 08/23/19 13:57 15:00 17:21 17:21 Temp 97.8 97.8 Pulse 80 80 80 Resp 17 B/P (MAP) 200/96 192/102 (132) 192/102 192/102 Pulse Ox 96 O2 Delivery Room Air 08/23/19 08/23/19 08/23/19 08/24/19 19:00 20:00 23:00 03:00 Temp 97.7 97.6 97.6 97.7 97.6 97.6 Pulse 67 70 70 Resp 20 20 20 B/P (MAP) 141/66 (91) 150/68 (95) 150/68 (95) Pulse Ox 95 95 95 O2 Delivery Room Air Room Air Room Air Room Air 08/24/19 08/24/19 08/24/19 07:00 09:37 09:37 Temp 97.5 97.5 Pulse 75 75 75 Resp 16 B/P (MAP) 161/78 (105) 161/78 161/78 Pulse Ox 98 O2 Delivery Room Air Intake and Output 08/23/19 08/23/19 08/24/19 15:00 23:00 07:00 Intake Total 600 ml 400 ml 1140 ml Balance 600 ml 400 ml 1140 ml Nutrition Consultation Dietary Evaluation: Recommendations by RD: Dietary education by RD, Increase Calorie Intake, Protein supplementation Comments: Glucerna q day Expected Outcomes/Goals: to meet >75% est nutr needs Malnutrition Findings: Food and Nutrition Intake (Mod: <75% est energy req 7days Weight Status: Appropriate NINI CASANOVA MD Aug 24, 2019 11:19
[2019-08-24] MEDS ORDERED: ENOXAPARIN 40 MG/0.4 ML SYRINGE. SQ SCH (11:30)
[2019-08-24] MEDS ORDERED: POTASSIUM CHLORIDE 20 MEQ TABLET.ER. PO ONE (12:00)
--- NOTE | 2019-08-24 12:07 | PDOC2 ---
GI CONSULT Reason For Consult: Hyperbilirubinemia, abnormal LFTs HPI: HPI: 69 y/o female w/ UTI. GI asked to see re: abnormal liver tests which were normal in 2014 and normal when in ER on 08/19 (except for Alk Phons 173). Worsening this admission. Treated as outpt for UTI, had some n/v and diarrhea (?with left-sided side pain) - resolved when stopped Keflex. Now tolerating diet, hasn't stooled in 2-3 days. Denies liver history. Has heartburn, takes Tums. No dysphagia, hematemesis, abd pain, constipation, hematochezia, melena, or weight loss. No previous EGD or colonoscopy. S/p cholecystectomy for gallstones. No pancreas or PUD history. Takes ibuprofen PRN at home. PMH: PMH: HTN, DM, GERD, UTI appendectomy, cholecystectomy, right wrist fracture/repair, right mastoidectomy FH: Family History: Cancer (sister - colon), Other (another sister - liver disease) Social History: Smoke: No ALCOHOL: none Drugs: None ROS: GEN: Denies fevers, chills, sweats HEENT: Denies blurred vision, sore throat CV: Denies chest pain RESP: Denies shortness of air, cough GI: Per HPI : Denies hematuria, dysuria ENDO: Denies weight changes NEURO: Denies confusion, dizziness MSK: Denies weakness, joint pain/swelling SKIN: Denies jaundice, pruritus Vitals: Vitals: Vital Signs Date Time Temp Pulse Resp B/P (MAP) Pulse Ox O2 Delivery O2 Flow Rate FiO2 08/24/19 11:00 84 109/63 (78) Room Air 08/24/19 11:00 97.4 18 98 97.4 Labs: Labs: Laboratory Tests Test 08/23/19 20:55 08/24/19 02:53 08/24/19 02:55 08/24/19 11:45 Glucose (Fingerstick) 170 mg/dL (70-99) 215 mg/dL (70-99) Sodium Level 134 mmol/L (136-145) Potassium Level 3.3 mmol/L (3.5-5.1) Chloride Level 100 mmol/L (98-107) Carbon Dioxide Level 28 mmol/L (21-32) Anion Gap 6 (6-14) Blood Urea Nitrogen 21 mg/dL (7-20) Creatinine 1.1 mg/dL (0.6-1.0) Estimated GFR (Cockcroft-Gault) 49.2 Glucose Level 155 mg/dL (70-99) Calcium Level 8.5 mg/dL (8.5-10.1) White Blood Count 7.4 x10^3/uL (4.0-11.0) Red Blood Count 4.20 x10^6/uL (3.50-5.40) Hemoglobin 12.0 g/dL (12.0-15.5) Hematocrit 34.8 % (36.0-47.0) Mean Corpuscular Volume 83 fL (79-100) Mean Corpuscular Hemoglobin 29 pg (25-35) Mean Corpuscular Hemoglobin Concent 35 g/dL (31-37) Red Cell Distribution Width 13.1 % (11.5-14.5) Platelet Count 118 x10^3/uL (140-400) Neutrophils (%) (Auto) 69 % (31-73) Lymphocytes (%) (Auto) 22 % (24-48) Monocytes (%) (Auto) 6 % (0-9) Eosinophils (%) (Auto) 3 % (0-3) Basophils (%) (Auto) 0 % (0-3) Neutrophils # (Auto) 5.2 x10^3/uL (1.8-7.7) Lymphocytes # (Auto) 1.6 x10^3/uL (1.0-4.8) Monocytes # (Auto) 0.5 x10^3/uL (0.0-1.1) Eosinophils # (Auto) 0.2 x10^3/uL (0.0-0.7) Basophils # (Auto) 0.0 x10^3/uL (0.0-0.2) Allergies: Coded Allergies: No Known Drug Allergies (Unverified , 02/20/15) Medications: Current Medications Medications (Trade) Dose Ordered Sig/Bere Route PRN Reason Start Time Stop Time Status Last Admin Dose Admin Amlodipine Besylate (Norvasc) 5 mg DAILY PO 08/23/19 17:00 08/24/19 09:37 Metoprolol Succinate (Toprol Xl) 25 mg DAILY PO 08/23/19 16:15 08/24/19 09:37 Imaging: Imaging: CT A/P IMPRESSION: 1. No acute abdominal or pelvic abnormality. 2. Minimal distal colon diverticulosis. CXR Impression: 1. No convincing infiltrate is identified by radiograph. US IMPRESSION: Mild hepatomegaly with Hepatic steatosis. CBD 7mm post-pauline. PE: GEN: NAD HEENT: Atraumatic, PERRL LUNGS: CTAB HEART: RRR ABD: NABS, S/ND/NT EXTREMITY: No edema SKIN: No rashes, no jaundice NEURO/PSYCH: A & O 3 A/P: A/P: UTI, LUCIANA N/v, diarrhea - resolved Abnormal LFTs Heartburn Hepatic steatosis CRC screen, FH colon cancer - none FH liver disease S/p cholecystectomy -- Check AMA re: PBC, follow labs. Acid-director of procurement for h/o heartburn. Should have outpt screening colonoscopy. ALKA CAMARILLO Aug 24, 2019 12:07
[2019-08-24 12:42] LABS: ALBUMIN 1.9 g/dL (3.4-5.0); DIRECT BILIRUBIN 8.1 mg/dL (0.0-0.2); TOTAL BILIRUBIN 9.9 mg/dL (0.2-1.0); TOTAL PROTEIN 7.2 g/dL (6.4-8.2)
--- NOTE | 2019-08-24 12:49 | PDOC3 ---
Discharge Summary Date of Admission: Aug 21, 2019 Date of Discharge: Aug 24, 2019 Follow-Up: 3-5 days Admitting Diagnosis comment: DISCHARGE DX 1. sepsis and Acute pyelonephritis, UTI 2. Acute renal failure 3. INTRACTABLE NAUSEA AND VOMITING, RESOLVED 4. DEHYDRATION 5. DIABETES 6. .HTN, suboptimal control; 7. severe protein malnutrition, POA 8. HYPOKALEMIA 08/23 POOR APPETITE, CONT IV ZOSYN ADD NORVASC 5 MG PO DAILY 08/24 START LANTUS 8 UNITS SQ Q HS D/W RN TEACHING NEED, WANTS TO GO HOME History of Present Illness History of Present Illness impression renal and ID following blood cx cont IV abx replace potassium, hypokalemia Vitals Vitals Vital Signs Date Time Temp Pulse Resp B/P (MAP) Pulse Ox O2 Delivery O2 Flow Rate FiO2 08/24/19 09:37 75 161/78 08/24/19 07:00 97.5 16 98 Room Air 97.5 Physical Exam Physical Exam GENERAL: Alert, oriented x 3, female, weak appearing, cooperative, pleasant. HEENT: Normocephalic, atraumatic, anicteric. No thrush. NECK: Supple, no JVD. LUNGS: Clear bilaterally. HEART: S1, S2. No gallops or murmurs. ABDOMEN: Soft, nontender, nondistended, no rebound, no guarding. BACK: Reveals normal curvature. No CVA tenderness. EXTREMITIES: No edema, no cyanosis. DERMATOLOGIC: Warm and dry. No generalized rash. NEUROLOGIC: Alert and oriented x 3, grossly nonfocal. PSYCHIATRIC: Cooperative, appropriate mood and affect. General: Alert, Oriented X3, Cooperative, No acute distress Heart: Regular rate, Normal S1 Lungs: Clear Abdomen: Normal bowel sounds, Soft Extremities: No cyanosis Skin: No rashes Labs LABS STATUS: ADM IN TLOC: SPEC #: [id number] CARMELA: 08/21/19 STATUS: COMP REQ #: [id number] RECD: 08/21/19 [facility] DR: MERLE HINOJOSA APRN SOURCE: VOID ENTR: 08/21/[address]: [facility]ANOVA [facility] BONILLA HUGHES MD NO PCP ORDERED: URINE CULTURE Procedure Result URINE CULTURE Final Final report URINE CULTURE RES 1 Final Comment Culture shows less than 10,000 colony forming units of bacteria per milliliter of urine. This colony count is not generally considered to be clinically significant. Performed at: - [facility], [place], [place] [id number] Order Department Supervisor: VIKAS Washington MD, Phone: [phone] FINAL DIAGNOSIS Problems Medical Problems: (1) Acute kidney injury Status: Acute (2) Orthostatic hypotension Status: Acute Brief Hospital Course Ms. Niño is a 69 old [sex] who presented with [ UTI, VOMITING] CONDITION AT DISCHARGE: Improved Discharge Medications Current Medications Sodium Chloride 1,000 ml @ 1,000 mls/hr Q1H IV Last administered on 08/21/19at 11:52; Start 08/21/19 at 11:38; Stop 08/21/19 at 12:37; Status DC Ondansetron HCl (Zofran) 4 mg 1X ONCE IV Last administered on 08/21/19at 11:51; Start 08/21/19 at 11:45; Stop 08/21/19 at 11:46; Status DC Famotidine (Pepcid Vial) 20 mg 1X ONCE IVP Last administered on 08/21/19at 11:51; Start 08/21/19 at 11:45; Stop 08/21/19 at 11:46; Status DC Ondansetron HCl (Zofran) 4 mg PRN Q8HRS PRN IV NAUSEA/VOMITING; Start 08/21/19 at 14:00; Stop 08/22/19 at 13:59; Status DC Fentanyl Citrate (Fentanyl 2ml Vial) 50 mcg PRN Q1HR PRN IV PAIN; Start 08/21/19 at 14:00; Stop 08/22/19 at 13:59; Status DC Sodium Chloride 1,000 ml @ 100 mls/hr Q10H IV Last administered on 08/21/19at 14:05; Start 08/21/19 at 13:55; Stop 08/22/19 at 13:54; Status DC Acetaminophen (Tylenol) 650 mg PRN Q4HRS PRN PO FEVER; Start 08/21/19 at 14:00; Stop 08/22/19 at 13:59; Status DC Ciprofloxacin/ Dextrose 200 ml @ 200 mls/hr Q24H IV Last administered on 08/21/19at 15:21; Start 08/21/19 at 15:00; Stop 08/22/19 at 11:06; Status DC Lactobacillus Rhamnosus (Culturelle) 1 cap BID PO Last administered on 08/24/19at 09:36; Start 08/21/19 at 21:00 Ciprofloxacin/ Dextrose 100 ml @ 100 mls/hr Q12HR IV ; Start 08/21/19 at 21:00; Stop 08/21/19 at 19:34; Status DC Piperacillin Sod/ Tazobactam Sod 3.375 gm/Sodium Chloride 50 ml @ 100 mls/hr Q6HRS IV ; Start 08/22/19 at 00:00; Status UNV Sodium Chloride (Normal Saline Flush) 3 ml QSHIFT PRN IV AFTER MEDS AND BLOOD DRAWS; Start 08/21/19 at 19:45 Sodium Chloride 1,000 ml @ 100 mls/hr Q10H IV Last administered on 08/23/19at 23:07; Start 08/21/19 at 19:32 Ondansetron HCl (Zofran) 4 mg PRN Q4HRS PRN IV NAUSEA/VOMITING 1ST CHOICE Last administered on 08/22/19at 17:45; Start 08/21/19 at 19:45 Acetaminophen (Tylenol) 650 mg PRN Q4HRS PRN PO TEMP OVER 100.4F OR MILD PAIN; Start 08/21/19 at 19:45 Acetaminophen (Tylenol Supp) 650 mg PRN Q4HRS PRN CO TEMP OVER 100.4F OR MILD PAIN; Start 08/21/19 at 19:45 Clonidine HCl (Catapres) 0.1 mg PRN Q6HRS PRN PO SBP>160 OR DBP>90 Last administered on 08/23/19at 13:57; Start 08/21/19 at 19:45 Docusate Sodium (Colace) 100 mg PRN BID PRN PO HARD STOOLS 1ST CHOICE; Start 08/21/19 at 19:45 Albuterol Sulfate (Ventolin Neb Soln) 2.5 mg PRN Q4HRS PRN NEB SHORTNESS OF BREATH; Start 08/21/19 at 19:45 Guaifenesin (Robitussin) 200 mg PRN Q4HRS PRN PO COUGH 1ST CHOICE; Start 08/21/19 at 19:45 Lorazepam (Ativan) 0.5 mg PRN Q4HRS PRN PO ANXIETY / AGITATION Last administered on 08/23/19at 23:05; Start 08/21/19 at 19:45 Enoxaparin Sodium (Lovenox 30mg Syringe) 30 mg DAILY SQ Last administered on 08/24/19at 09:39; Start 08/22/19 at 09:00; Stop 08/24/19 at 11:15; Status DC Piperacillin Sod/ Tazobactam Sod 2.25 gm/Sodium Chloride 50 ml @ 100 mls/hr Q8HRS IV Last administered on 08/24/19at 05:25; Start 08/21/19 at 22:00 Potassium Chloride (Klor-Con) 40 meq 1X ONCE PO Last administered on 08/22/19at 14:12; Start 08/22/19 at 13:00; Stop 08/22/19 at 13:01; Status DC Amlodipine Besylate (Norvasc) 5 mg DAILY PO Last administered on 12/4/19at 09:37; Start 08/23/19 at 17:00 Metoprolol Succinate (Toprol Xl) 25 mg DAILY PO Last administered on 08/24/19at 09:37; Start 08/23/19 at 16:15 Enoxaparin Sodium (Lovenox 40mg Syringe) 40 mg Q24H SQ ; Start 08/24/19 at 11:30 Potassium Chloride (Klor-Con) 40 meq 1X ONCE PO ; Start 08/24/19 at 12:00; Stop 08/24/19 at 12:01; Status DC Potassium Chloride (Klor-Con) 20 meq DAILYWBKFT PO ; Start 08/25/19 at 08:00 Insulin Glargine (Lantus Syringe) 8 unit QHS SQ ; Start 08/24/19 at 21:00 Pantoprazole Sodium (Protonix) 40 mg DAILYAC PO ; Start 08/24/19 at 16:30 Active Scripts Active Diclofenac Potassium 50 Mg Tablet 1 Tab PO BID 3 Days Keflex (Cephalexin) 500 Mg Capsule 2 Cap PO Q12HR 5 Days Vital Signs Vital Signs Date Time Temp Pulse Resp B/P (MAP) Pulse Ox O2 Delivery O2 Flow Rate FiO2 08/24/19 11:00 84 109/63 (78) Room Air 08/24/19 11:00 97.4 18 98 97.4 Labs Laboratory Tests Test 08/22/19 16:55 08/23/19 04:15 08/23/19 20:55 08/24/19 02:53 Glucose (Fingerstick) 146 mg/dL (70-99) 170 mg/dL (70-99) White Blood Count 7.4 x10^3/uL (4.0-11.0) Red Blood Count 3.96 x10^6/uL (3.50-5.40) Hemoglobin 11.6 g/dL (12.0-15.5) Hematocrit 32.9 % (36.0-47.0) Mean Corpuscular Volume 83 fL (79-100) Mean Corpuscular Hemoglobin 29 pg (25-35) Mean Corpuscular Hemoglobin Concent 35 g/dL (31-37) Red Cell Distribution Width 13.2 % (11.5-14.5) Platelet Count 137 x10^3/uL (140-400) Neutrophils (%) (Auto) 72 % (31-73) Lymphocytes (%) (Auto) 19 % (24-48) Monocytes (%) (Auto) 7 % (0-9) Eosinophils (%) (Auto) 1 % (0-3) Basophils (%) (Auto) 0 % (0-3) Neutrophils # (Auto) 5.3 x10^3/uL (1.8-7.7) Lymphocytes # (Auto) 1.4 x10^3/uL (1.0-4.8) Monocytes # (Auto) 0.5 x10^3/uL (0.0-1.1) Eosinophils # (Auto) 0.1 x10^3/uL (0.0-0.7) Basophils # (Auto) 0.0 x10^3/uL (0.0-0.2) Sodium Level 136 mmol/L (136-145) 134 mmol/L (136-145) Potassium Level 3.8 mmol/L (3.5-5.1) 3.3 mmol/L (3.5-5.1) Chloride Level 102 mmol/L (98-107) 100 mmol/L (98-107) Carbon Dioxide Level 25 mmol/L (21-32) 28 mmol/L (21-32) Anion Gap 9 (6-14) 6 (6-14) Blood Urea Nitrogen 32 mg/dL (7-20) 21 mg/dL (7-20) Creatinine 1.4 mg/dL (0.6-1.0) 1.1 mg/dL (0.6-1.0) Estimated GFR (Cockcroft-Gault) 37.3 49.2 BUN/Creatinine Ratio 23 (6-20) Glucose Level 184 mg/dL (70-99) 155 mg/dL (70-99) Calcium Level 8.5 mg/dL (8.5-10.1) 8.5 mg/dL (8.5-10.1) Phosphorus Level 3.1 mg/dL (2.6-4.7) Magnesium Level 1.7 mg/dL (1.8-2.4) Total Bilirubin 7.9 mg/dL (0.2-1.0) Aspartate Amino Transf (AST/SGOT) 89 U/L (15-37) Alanine Aminotransferase (ALT/SGPT) 53 U/L (14-59) Alkaline Phosphatase 384 U/L (46-116) Total Protein 6.7 g/dL (6.4-8.2) Albumin 1.8 g/dL (3.4-5.0) Albumin/Globulin Ratio 0.4 (1.0-1.7) Test 08/24/19 02:55 08/24/19 11:45 White Blood Count 7.4 x10^3/uL (4.0-11.0) Red Blood Count 4.20 x10^6/uL (3.50-5.40) Hemoglobin 12.0 g/dL (12.0-15.5) Hematocrit 34.8 % (36.0-47.0) Mean Corpuscular Volume 83 fL (79-100) Mean Corpuscular Hemoglobin 29 pg (25-35) Mean Corpuscular Hemoglobin Concent 35 g/dL (31-37) Red Cell Distribution Width 13.1 % (11.5-14.5) Platelet Count 118 x10^3/uL (140-400) Neutrophils (%) (Auto) 69 % (31-73) Lymphocytes (%) (Auto) 22 % (24-48) Monocytes (%) (Auto) 6 % (0-9) Eosinophils (%) (Auto) 3 % (0-3) Basophils (%) (Auto) 0 % (0-3) Neutrophils # (Auto) 5.2 x10^3/uL (1.8-7.7) Lymphocytes # (Auto) 1.6 x10^3/uL (1.0-4.8) Monocytes # (Auto) 0.5 x10^3/uL (0.0-1.1) Eosinophils # (Auto) 0.2 x10^3/uL (0.0-0.7) Basophils # (Auto) 0.0 x10^3/uL (0.0-0.2) Glucose (Fingerstick) 215 mg/dL (70-99) Laboratory Tests Test 08/23/19 20:55 08/24/19 02:53 08/24/19 02:55 08/24/19 11:45 Glucose (Fingerstick) 170 mg/dL (70-99) 215 mg/dL (70-99) Sodium Level 134 mmol/L (136-145) Potassium Level 3.3 mmol/L (3.5-5.1) Chloride Level 100 mmol/L (98-107) Carbon Dioxide Level 28 mmol/L (21-32) Anion Gap 6 (6-14) Blood Urea Nitrogen 21 mg/dL (7-20) Creatinine 1.1 mg/dL (0.6-1.0) Estimated GFR (Cockcroft-Gault) 49.2 Glucose Level 155 mg/dL (70-99) Calcium Level 8.5 mg/dL (8.5-10.1) White Blood Count 7.4 x10^3/uL (4.0-11.0) Red Blood Count 4.20 x10^6/uL (3.50-5.40) Hemoglobin 12.0 g/dL (12.0-15.5) Hematocrit 34.8 % (36.0-47.0) Mean Corpuscular Volume 83 fL (79-100) Mean Corpuscular Hemoglobin 29 pg (25-35) Mean Corpuscular Hemoglobin Concent 35 g/dL (31-37) Red Cell Distribution Width 13.1 % (11.5-14.5) Platelet Count 118 x10^3/uL (140-400) Neutrophils (%) (Auto) 69 % (31-73) Lymphocytes (%) (Auto) 22 % (24-48) Monocytes (%) (Auto) 6 % (0-9) Eosinophils (%) (Auto) 3 % (0-3) Basophils (%) (Auto) 0 % (0-3) Neutrophils # (Auto) 5.2 x10^3/uL (1.8-7.7) Lymphocytes # (Auto) 1.6 x10^3/uL (1.0-4.8) Monocytes # (Auto) 0.5 x10^3/uL (0.0-1.1) Eosinophils # (Auto) 0.2 x10^3/uL (0.0-0.7) Basophils # (Auto) 0.0 x10^3/uL (0.0-0.2) Allergies Allergies Coded Allergies Type Severity Reaction Last Updated Verified No Known Drug Allergies 02/20/15 No Disposition/Orders: D/C to Home Patient Instructions D/C PLANNING 33 MIN NINI CASANOVA MD Aug 24, 2019 12:49
[2019-08-24] MEDS ORDERED: AMLO5TAB10 PO (12:54)
[2019-08-24] MEDS ORDERED: PANT40TA77 PO (12:54)
[2019-08-24] MEDS ORDERED: AMOX1TAB58 PO (12:54)
[2019-08-24] MEDS ORDERED: ACET325T9 PO (12:54)
[2019-08-24] MEDS ORDERED: INSU100V8 SQ (12:54)
[2019-08-24] MEDS ORDERED: LACT1CAP19 PO (12:54)
[2019-08-24] MEDS ORDERED: POTA20TA4 PO (12:54)
--- NOTE | 2019-08-24 12:56 | DISCH ---
DISCHARGE INSTRUCTIONS Condition on Discharge Condition on Discharge: Stable Activity After Discharge Activity Instructions for Disc: Activity as tolerated Lifting Instructions after Dis: No heavy lifting, No pulling or pushing Exercise Instruction after Dis: Walk 10 min, 3 x per day Driving Instructions after Dis: Do not drive today Diet after Discharge Diet after Discharge: Diabetic No Calorie Level Liquid Texture: Thin Liquid Checks after Discharge Checks after discharge: Check blood press - daily Contacting the DR. after DC Call your doctor for: If your condition worsens NINI CASANOVA MD Aug 24, 2019 12:56
[2019-08-24] MEDS ORDERED: INSULIN GLARGINE SYRINGE. SQ ONE (14:00)
[2019-08-24] MEDS ORDERED: PANTOPRAZOLE 40 MG TABLET.DR. PO SCH (16:30)
[2019-08-24] MEDS ORDERED: INSULIN GLARGINE SYRINGE. SQ SCH (21:00)
[2019-08-25] MEDS ORDERED: POTASSIUM CHLORIDE 20 MEQ TABLET.ER. PO SCH (08:00)
== END 2019-08-24 16:16 | disposition home or self-care (01) | DRG 871 ==
LOC: ER 10:59 → 1 WEST ICU 13:08 → 2 SOUTH 18:46 → 5 SOUTH 08-22 18:09
PROVIDERS: ADMIT Family Medicine; ATTEND Family Medicine
DX: A41.9 Sepsis, unspecified organism (principal); E43 Unspecified severe protein-calorie malnutrition; N17.9 Acute kidney failure, unspecified; N10 Acute pyelonephritis; E87.2 Acidosis; E87.1 Hypo-osmolality and hyponatremia; D69.6 Thrombocytopenia, unspecified; E11.9 Type 2 diabetes mellitus without complications; I10 Essential (primary) hypertension; E86.0 Dehydration; K76.0 Fatty (change of) liver, not elsewhere classified; E87.6 Hypokalemia; K21.9 Gastro-esophageal reflux disease without esophagitis; Z68.26 Body mass index [BMI] 26.0-26.9, adult; Z79.4 Long term (current) use of insulin; Z90.49 Acquired absence of other specified parts of digestive tract; Z79.899 Other long term (current) drug therapy; Z80.0 Family history of malignant neoplasm of digestive organs; Z82.49 Family history of ischemic heart disease and other diseases of the circulatory system
CPT/HCPCS: 36415; 71046; 74176; 76700; 80048; 80053; 80076; 80307; 81001; 82962; 83520; 83605; 83690; 83735; 84100; 84484; 85007; 85025; 87040; 87086; 93005; 96361; 96374; 96375; J0744; J1650; J1815; J2405; J2543; J3490; J7030; 83516; 97116; 99285-25; G0378